=== PATIENT | female | born 1940 | race Hispanic/Latino ===

== ENCOUNTER 2020-07-05 19:43 | Inpatient (IN) | payer OTHER ==
--- OUTSIDE RECORDS SUMMARY | 2020-07-05 19:45 | XMS REPORT | Clinical Summary ---
:1940 Author Organization [facility] Address [address] [place] [address] Care Team Providers Name Role Phone Unavailable Primary Care Provider Unavailable Allergies Not on File Medications Not on file Active Problems Not on file Encounters Date Type Specialty Care Team Description 03/01/2020 Lab Lab Bhavya Greer MD 03/01/2020 Travel after 07/05/2019 Social History Tobacco Use Types Packs/Day Years Used Date Never Assessed Sex Assigned at Date Recorded Not on file Last Filed Vital Signs Not on file Plan of Treatment Health Maintenance Due Date Last Done Comments COVID-19 VACCINE (#1) 1958 SHINGLES VACCINES (#1) 1992 65+ PNEUMOCOCCAL VACCINE (1 of 1 - PPSV23) 2007 INFLUENZA VACCINE 01/29/2020 Procedures Procedure Name Priority Date/Time Associated Diagnosis Comme nts SURGICAL PATHOLOGY Routine 03/01/2020 6:26 PM Re sults for this REQUEST CDT procedure are i n the results section. after 07/05/2019 Results Surgical pathology request (03/01/2020 6:26 PM CDT) [facility] DEPARTMENT OF PATHOLOGY AND GENOMIC MEDICINE Surgical pathology See link below [facility] DEPARTMENT OF report for PDF Lab PATHOLOGY AND Report GENOMIC MEDICINE Result status This is Final [facility] DEPARTMENT OF Report for PATHOLOGY AND [id number] GENOMIC MEDICINE Specimen Performing Organization Address City/State/ZIP Code Phon e Number [facility] DEPARTMENT OF PATHOLOGY AND [address] [place], [place] [address] GENOMIC MEDICINE after 07/05/2019 Insurance Payer Benefit Plan / Subscriber ID Effective Dates Phone Addre ss Type Group MEDICAID MEDICAID [id number] 2016-Present Med icaid [facility] MEDICARE [facility] DUAL COMPLETE [id number] 2019-Present O MCR Advance Directives For more information, please contact: [phone] Type Date 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
--- OUTSIDE RECORDS SUMMARY | 2020-07-05 19:46 | XMS REPORT ---
:1940 Author Organization [facility] Address 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 Problem Osteoarthritis M19.90 Active 129091516 Problem Screening mammogram, Z12.31 Active 171340450 encounter for Problem Hyperlipidemia, E78.5 Active 93648173 unspecified hyperlipidemia type Problem Diabetic E13.42 Active 64670437 polyneuropathy associated with other specified diabetes mellitus Problem Stress incontinence of N39.3 Active 44664783 urine Problem Other chronic pain G89.29 Active 73567898 Problem Right upper quadrant R10.11 Active 119425465 abdominal pain Problem Morbid obesity E66.01 Active 899244705 Problem Respiratory symptoms R09.89 Active 926686354 Problem Long-term insulin use Z79.4 Active 287642415 Problem Body mass index (BMI) Z68.42 Active 002665739 45.0-49.9, adult Problem Uncontrolled type 2 E11.65 Active 297412355 diabetes mellitus with hyperglycemia Problem Pain in left knee M25.562 Active 32469358150190 2 Problem Peripheral edema R60.9 Active 876176342 Problem Pain in right knee M25.561 Active 81924729 Problem Dorsalgia, unspecified M54.9 Active 561819631 Problem Obstructive sleep G47.33 Active 11122293 apnea Problem Neck pain M54.2 Active 80571326 Problem Pure E78.00 Active 726948825 hypercholesterolemia Problem Fatty liver K76.0 Active 982804315 Problem Right leg pain M79.604 Active 567556911 Problem Right hip pain M25.551 Active 366431840976059 Problem Frequent falls R29.6 Active 385600120 Problem Pain of upper abdomen R10.10 Active 54360794 ALLERGIES Allergen (clinical drug Drug/Non Drug Allergy Reaction Allergy Type Onset Date Status ingredient) documented on EMR Carlos Inhibitor Unknown Drug Allergy Active lisinopril Lisinopril([facility] Unknown Drug Allergy Active Code:[address]-10) ENCOUNTERS from 1940 to 2020-04-11 Encounter Location Date Provider Diagnosis [facility] [address] [facility] [address] Mar, 2020 [facility] [place] [address] IMMUNIZATIONS No Information SOCIAL HISTORY Tobacco Use: Social History Observation Description Date Details (start date - stop date) Never Smoker Sex Assigned At : Social History Observation Description Sex Assigned At Unknown PHQ9 Question Answer Notes Little interest or pleasure in doing things More than half t he days Feeling down, depressed, or hopeless More than half the days Trouble falling or staying asleep or sleeping too much Not a t all Feeling tired or having little energy Nearly every day Poor appetite or overeating Not at all Feeling bad about yourself, or that you are a failure, Nearl y every day or have let yourself or your family down Trouble concentrating on things, such as reading the Not at all newspaper or watching television Moving or speaking so slowly that other people could Not at all have noticed; or the opposite, being so fidgety or restless that you have been moving around a lot more than usual Total Score 10 Interpretation Moderate Depression Thoughts that you would be better off or of Not at all hurting yourself in some way Alcohol Screen Question Answer Notes Did you have a drink containing alcohol in the past year? No Points 0 Interpretation Negative Tobacco Use/Smoking Question Answer Notes Are you a never smoker REASON FOR REFERRAL No Information VITAL SIGNS No information MEDICATIONS Medication SIG (Take, Route, Start Date End Date Status Frequency, Duration) Pioglitazone HCl 30 MG 1 tablet Orally Once a Feb, Active day for 90 days Tramadol HCl 50 MG 1 tablet as needed for Active pain Orally Twice daily Albuterol Sulfate HFA 108 2 puffs as needed Active (90 Base) MCG/ACT Inhalation every 4-6 hrs for 30 days BD Pen Needle Kathrine U/F USE DIRECTED for 90 Active 32G X 4 MM Pioglitazone HCl 30 mg 1 tablet Orally Once Active daily for 90 days Tresiba FlexTouch 200 45 units Subcutaneous Active UNIT/ML Once daily for 90 days Escitalopram Oxalate 20 1 tablet Orally Once a Active MG day for 90 days Omeprazole 40 MG 1 capsule Orally Once a Feb, Active day BD Pen Needle Kathrine U/F 0 USE EVERY DAY for 90 Active Losartan Potassium 100 1 tablet Orally Once a Active day for 90 days Victoza 18 MG/3ML as directed Subcutaneous 4 Nov, 2020 Active 1.8 mg once daily for 90 days Magnesium Oxide 400 1 tablet as needed Ac tive Orally Once a day for 90 Lexapro 10 1 TAB(S) ONCE A DAY for Not- Taking 90 Metoprolol Succinate ER 1 tablet Orally Once a Feb, Active 25 MG day for high blood pressure for 90 days Creon 10 33.2-10-37.5 MU as directed Orally Active Victoza 18 MG/3ML 1.2 units Subcutaneous Not-Taking daily Gabapentin 300 1 capsule Orally three Act rodney times a day for 90 days PROCEDURES No Information RESULTS No Results REASON FOR VISIT surgical clearance concern MEDICAL (GENERAL) HISTORY Type Description Date Medical History Diabetic polyneuropathy associated with other specified diabetes mellitus Medical History Diabetes type 2, uncontrolled Medical History Hyperlipidemia Medical History Depression with anxiety Medical History Benign hypertension Medical History Fatty liver Medical History Osteoarthritis Medical History Obstructive sleep apnea Medical History DJD (degenerative joint disease) of lumb ar spine Surgical History 1979 Surgical History gall bladder 1987 Goals Section No Information Health Concerns No Information MEDICAL EQUIPMENT No Information MENTAL STATUS No Information FUNCTIONAL STATUS No Information ASSESSMENTS No Information PLAN OF TREATMENT Medication Medication Name Sig Start Date Stop Date Escitalopram Oxalate 20 MG 1 tablet Orally Once a day for 90 days Tresiba FlexTouch 200 UNIT/ML 45 units Subcutaneous Once daily for 90 days Victoza 18 MG/3ML as directed Subcutaneous 1.8 4 Nov, 2020 mg once daily for 90 days Pioglitazone HCl 30 mg 1 tablet Orally Once daily for 90 days Losartan Potassium 100 1 tablet Orally Once a day for 90 days Albuterol Sulfate HFA 108 (90 2 puffs as needed Inhalation Base) MCG/ACT every 4-6 hrs for 30 days Metoprolol Succinate ER 25 MG 1 tablet Orally Once a day for Feb, high blood pressure for 90 days Next Appt Details Provider Name:Imelda Tello, 2020-05-02 0 10:00:00 AM, [address], [address], [place], [address], Provider Name:Imelda Tello, 2020-05-02 0 10:20:00 AM, [address], [address], [place], [address], Insurance Providers Payer Name Payer Address Payer Insured Patient Coverage Cover age Phone Name Relationship to Start Date End Date Insured MEDICAID [address] [phone] Catherine Vidal [facility] [address] [address] MEDICARE Attn Part B [id number] Catherine Vidal [facility] Claims [phone] [id number] [facility] Dual [address] [address] [phone] Catherine Vidal Complete [facility] [address] [id number]
--- OUTSIDE RECORDS SUMMARY | 2020-07-05 19:46 | XMS REPORT ---
:1940 Author Organization [facility] Address [address] [facility] [facility] [address] [place] [address] Care Team Providers Name Role Phone Caldwell Unavailable [phone] PROBLEMS Type Condition ICD9-CM [id number] Onset Condition SNOMED Code Notes Code Code Dates Status Problem Depression with F41.8 Active 635756892 anxiety Problem Obstructive sleep G47.33 Active 75967789 apnea Problem Pure E78.00 Active 524565493 hypercholesterolemia Problem Body mass index (BMI) Z68.43 Active 523033983 50-59.9 , adult Problem Fatty (change of) K76.0 Active 043623511 liver, not elsewhere classified Problem Diabetic E13.42 Active 63823757 polyneuropathy associated with other specified diabetes mellitus Problem Type 2 diabetes E11.42 Active 40591681 mellitus with diabetic polyneuropathy, without long-term current use of insulin Problem Screening mammogram, Z12.31 Active 676115574 encounter for Problem Osteoarthritis M19.90 Active 070845945 Problem Right hip pain M25.551 Active 614055636023202 Problem 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 86475171 joint disease) of lumbar spine Problem Essential (primary) I10 Active 03108978 hypertension Problem Fatty liver K76.0 Active 723836604 Problem Long-term insulin use Z79.4 Active 430675217 Problem Body mass index (BMI) Z68.42 Active 148946454 45.0-49.9, adult Problem Respiratory symptoms R09.89 Active 046424979 Problem Uncontrolled type 2 E11.65 Active 872071015 diabetes mellitus with hyperglycemia Problem Morbid obesity E66.01 Active 568433018 Problem Right upper quadrant R10.11 Active 434112202 abdominal pain Problem Pain in right knee M25.561 Active 05688987 Problem Right leg pain M79.604 Active 726799261 Problem Pain in left knee M25.562 Active 98692440761811 2 Problem Peripheral edema R60.9 Active 681129597 Problem Pain of upper abdomen R10.10 Active 44072039 Problem Hypomagnesemia E83.42 Active 183231298 Problem Stress incontinence of N39.3 Active 21835384 urine Problem Allergic rhinitis J30.9 Active 54101765 Problem Other chronic pain G89.29 Active 57974501 Problem Hyperlipidemia, E78.5 Active 73598889 unspecified hyperlipidemia type Problem Frequent falls R29.6 Active 067681342 Problem Neck pain M54.2 Active 97454872 Problem Dorsalgia, unspecified M54.9 Active 551331561 Problem Incontinence in female N39.3 Active 25900024 ALLERGIES Allergen (clinical drug Drug/Non Drug Allergy Reaction Allergy Type Onset Date Status ingredient) documented on EMR Carlos Inhibitor Unknown Drug Allergy Active lisinopril Lisinopril([facility] Unknown Drug Allergy Active Code:[address]-65) ENCOUNTERS from 1940 to 2020-06-18 Encounter Location Date Provider Diagnosis [facility] [place] [address] [facility] [place], Salazar Caldwell Morbid ob esity E66.01 ; [facility] [address] [place], hyperchole sterolemia E78.00 [place] [address] ; Stress incon tinence of urine N39.3 ; U ncontrolled type 2 diabetes mellitus with hyperglyce dwayne E11.65 ; Hypomagnesemia E83.42 ; Incontinence in female N39.3 ; Allergic rhin itis J30.9 and Snoring R06 .83 IMMUNIZATIONS No Information SOCIAL HISTORY Tobacco Use: [...] REASON FOR REFERRAL No Information VITAL SIGNS Height 61 in May, Weight 268.4 lbs May, Temperature 97.6 degrees Fahrenheit May, BMI 50.71 kg/m2 May, Oximetry 95 % May, Respiratory Rate 18 /min May, Blood pressure systolic 136 mm Hg May, Blood pressure diastolic 80 mm Hg May, MEDICATIONS Medication SIG (Take, Route, Notes Start Date End Date Status Frequency, Duration) Tresiba FlexTouch 200 45 units Subcutaneous Active UNIT/ML Once daily for 90 days BD Pen Needle Kathrine U/F USE EVERY DAY for 90 Active 0 BD Pen Needle Kathrine U/F USE DIRECTED for Active 32G X 4 MM 90 Victoza 18 MG/3ML as directed Nov, Activ e Subcutaneous 1.8 mg once daily for 90 days Pioglitazone HCl 30 MG 1 tablet Orally Once Feb, Active a day for 90 days Albuterol Sulfate HFA 2 puffs as needed Active 108 (90 Base) MCG/ACT Inhalation every 4-6 hrs for 30 days Gabapentin 300 MG TAKE 1 CAPSULE BY Active MOUTH THREE TIMES DAILY for 30 Tramadol HCl 50 MG 1 tablet as needed Active for pain Orally Twice daily Fish Oil Active Lexapro 10 1 TAB(S) ONCE A DAY Not-T aking for 90 Omeprazole 40 MG 1 capsule Orally Once Feb, Active a day Creon 10 33.2-10-37.5 as directed Orally Not-Taking MU Victoza 18 MG/3ML 1.2 units Not-Paulino ing Subcutaneous daily Magnesium Oxide 400 1 tablet as needed Not-Taking Orally Once a day for 90 Metoprolol Succinate 1 tablet Orally Once Feb, Active ER 25 MG a day for high blood pressure for 90 days Pioglitazone HCl 30 mg 1 tablet Orally Once Active daily for 90 days Gabapentin 300 1 capsule Orally Acti ve three times a day for 90 days Losartan Potassium 100 1 tablet Orally Once Active a day for 90 days Escitalopram Oxalate 1 tablet Orally Once Active 20 MG a day for 90 days PROCEDURES No Information RESULTS No Results REASON FOR VISIT Est Care Prev Millender (both pt and daughter screened) ([phone]) MEDICAL (GENERAL) HISTORY Type Description Date Medical [...] No Information FUNCTIONAL STATUS No Information ASSESSMENTS Encounter Date Diagnosis Assessment Treatment Notes Treatment Notes Clinical Notes May, Morbid obesity (ICD-10 - discussed weight E66.01) loss, diet and regular exercise. May, Pure hypercholesterolemia (ICD-10 - E78.00) May, Stress incontinence of 80 F hx morbid urine (ICD-10 - N39.3) obesty, IDDMII, HTN, 8 vaginal presents with stress urinary incontinence for several years. May, Uncontrolled type 2 diabetes mellitus with hyperglycemia (ICD-10 - E11.65) May, Hypomagnesemia (ICD-10 - E83.42) May, Incontinence in female (ICD-10 - N39.3) May, Allergic rhinitis (ICD-10 BL distended na leena - J30.9) turbinates vs polyp. daily flonase instead of PRN, if not improving will consult ENT May, Snoring (ICD-10 - R06.83) 80 F hx morbid obesity, IDDMII, depression, pancreatic insufficiency presents with snoring, daytime somnolence (after meal), neck 16 inches, malampati class 4. PLAN OF TREATMENT Treatment Notes Assessment Notes Clinical Notes Morbid obesity discussed weight loss, diet and regular exercise. Stress incontinence of urine 80 F hx morbid obesty, IDDMII, HTN, 8 vaginal presents with stress urinary incontinence for several years. Allergic rhinitis BL distended nasal turbinates vs polyp.daily flonase instead of PRN, if not improving will consult ENT Snoring 80 F hx morbid obesity, IDDMII, depression, pancreatic insufficiency presents with snoring, daytime somnolenc e (after meal), neck 16 inches, malampati class 4. Future Test Test Name Order Date Urinalysis, Routine 20200613 Urine Culture, Routine 20200613 Microalbumin, Random Urine 20200613 CBC With Differential/Platelet 20200613 Comp. Metabolic Panel (14) (CMP) 20200613 Hemoglobin A1c 20200613 Lipid Panel 20200613 Magnesium, Serum 20200613 Next Appt Details Provider Name:Salazar Javi, 2020-07-07 09:45 :00 AM, [address], [address], [place], [address], Provider Name:Salazar Caldwell, 2020-07-14 02:40 :00 PM, [address], [address], [place], [address], Insurance Providers Payer Name Payer Payer Insured Patient Coverage Coverage End Address Phone Name Relationship to Start Date Chase e Insured [facility] Dual [address] [address] [phone] Benita Vidal self Complete [address] [facility] [id number]
--- OUTSIDE RECORDS SUMMARY | 2020-07-05 19:46 | XMS REPORT | Continuity of Care Document ---
:1940 Author Organization [facility] t Address [address] [place] [address] Care Team Providers Name Role Phone Percy NOLAN Attending Clinician Payers Payer Name Policy Type Policy Effective Date Expiration Date Sour ce Number MEDICAIDMEDICAIDx [id number] 2016 [place] [id number] 2016- 00:00:[address] PresentMedicaid [facility] MEDICAREUHC [id number] 2019 [place] DUAL COMPLETE 00:00:00 [facility] PQEsvusg24476/07/01 020-PresentHMO Problems This patient has no known problems. Allergies, Adverse Reactions, Alerts Allergy Allergy Status Severity Reaction(s) Onset Inactive Treating Comm ents Source Name Type Date Date Clinician Carlos Adverse Active Info Not [facility] Inhibito Reaction Available [facility] Lisinopr Adverse Active Info Not [facility] Reaction [facility] Social History Social Habit Start Date Stop Date Quantity Comments Source Sex Assigned At [facility] Medications Ordered Filled Start Stop Current Ordering Indication Dosage Frequency Signature Comments Components Source Medication Medication Date Date Medication? Clinician (SIG) Name Name Metoprolol Metoprolol 2019-0 Yes Imelda [address] [facility] Succinate Succinate 9-04 Millender [facility] Metoprolol Metoprolol 2020-0 Yes Imelda [address] [facility] Succinate Succinate 5-26 [facility]ender [facility] Pioglitazon Pioglitazon 2019-0 Yes Imelda [address] [facility] HCl e HCl 9-25 [facility] Omeprazole Omeprazole 2017-0 Yes Imelda [address] [facility] 9-08 [facility]ender [facility] Tresiba Tresiba Yes Imelda [address] [facility] FlexTouch FlexTouch [facility]ender [facility] Magnesium Magnesium Yes Imelda [address] [facility] Oxide Oxide Millender as needed [facility] Tramadol Tramadol Yes Imelda [address] HCl HCl Millender as needed [facility] BD Pen BD Pen Yes Imelda USE EVERY [facility] Needle Kathrine Needle Kathrine Millender DAY [facility] Gabapentin Gabapentin Yes Imelda [address] [facility]ender [facility] Escitalopra Escitalopra Yes Imelda [address] [facility] m Oxalate m Oxalate Millender [facility] Albuterol Albuterol Yes Imelda [address] [facility] Sulfate HFA Sulfate HFA Millender needed [facility] Creon 10 Creon 10 Yes Imelda as [facility] Millender directed [facility] Losartan Losartan Yes Imelda [address] [facility] Potassium Potassium [facility] Lexapro Lexapro Yes Imelda 1 TAB(S) [facility] Millender ONCE A DAY [facility] Victoza Victoza Yes Imelda 1.[address] [facility] Millender [facility]ics Victoza Victoza 2020- No Imelda as [facility] 06-04 Millender directed [facility] Procedures Procedure Date / Time Performed Performing Clinician [facility] SURGICAL PATHOLOGY 2020-03-01 18:26:00 Bhavya Greer REQUEST Plan of Care Planned Activity Planned Date Details Comments Source Future Scheduled 2020-01-29 INFLUENZA VACCINE [place] [facility] 00:00:00 [code = INFLUENZA VACCINE] Future Scheduled 2007 65+ PNEUMOCOCCAL Colin [facility] Test 00:00:00 VACCINE (1 of 1 - PPSV23) [code = 65+ PNEUMOCOCCAL VACCINE (1 of 1 - PPSV23)] Future Scheduled 1992 SHINGLES VACCINES (#1) H feroz [facility] Test 00:00:00 [code = SHINGLES VACCINES (#1)] Future Scheduled 1958 COVID-19 VACCINE (#1) Ho merrick [facility] Test 00:00:00 [code = COVID-19 VACCINE (#1)] Encounters Start End Encounter Admission Attending Care Care Encounter Source Date/Time Date/Time Type Type Clinicians Facility Department ID 2020-06-21 2020-06-21 Outpatient [facility] [id number] [facility] 2020-06-13 2020-06-13 Outpatient [facility] [id number] [facility] 2020-04-10 2020-04-10 Outpatient [facility] [id number] [facility] 2020-03-13 2020-03-13 Outpatient [facility] [id number] [facility] 2020-03-01 2020-03-01 Outpatient Dameon Lugo [id number] [facility] 16:20:00 16:20:00 [facility] 2020-03-01 2020-03-01 Outpatient [facility] [id number] [place] 00:00:00 00:00:00 BHAVYA [address] 2020-02-22 2020-02-22 Outpatient Dameon Lugo [id number] 16:30:00 16:30:00 [facility] Clin[facility] 2020-02-18 2020-02-18 Outpatient Dameon Xiaot [id number] 11:13:00 11:13:00 [facility] Medicine Outpat[facility] ent Clinics 2019-12-07 2019-12-07 [facility] [id number] 09:54:00 09:54:00 [facility] 2019-11-23 2019-11-23 [facility] [id number] [facility] 08:40:00 08:40:00 [facility] 2019-09-13 2019-09-13 [facility] [id number] [facility] 14:09:00 14:09:00 [facility] 2019-08-24 2019-08-24 [facility] [id number] 08:15:00 08:15:00 [facility] 2019-07-26 2019-07-26 [facility] [id number] 16[facility]40:00 16:40:00 [facility] 2019-07-06 2019-07-06 [facility] [id number] 16:20:00 16:20:00 [facility] Out[facility] Clin[facility] 2019-05-24 2019-05-24 [facility] [id number] 09[facility]00:00 09:00:00 [facility] 2019-05-19 2019-05-19 [facility] [id number] [facility] 10[facility]14:00 10:14:00 [facility] 2019-05-14 2019-05-14 [facility] [id number] 15:28:00 15:28:00 [facility] Clin[facility] 2019-02-26 2019-02-26 [facility] [id number] 16:03:00 16:03:00 [facility] 2019-02-23 2019-02-23 [facility] [id number] 09:30:00 09:30:00 [facility] 2018-12-09 2018-12-09 [facility] [id number] 14:30:00 14:30:00 [facility] 2018-07-27 2018-07-27 [facility] [id number] 09:15:00 09:15:00 [facility] Results Test Description Test Time Test Comments Results Result Comments Source Surgical pathology request 2020-03-03 18:46:19 Test Item Value Reference Range Interpretation Comme [facility] Case number (test code = [id number]) [id number] Surgical pathology report (test code = See link below for PDF Lab R eport 8787) Result status (test code = [id number]) This is Final Report for [id number] Cristi Burdick
--- OUTSIDE RECORDS SUMMARY | 2020-07-05 19:46 | XMS REPORT ---
:1940 Author Organization [facility] Address [address] [place], [address] [place] [address] Care Team Providers Name Role Phone Vaughan Unavailable [phone] PROBLEMS Type Condition ICD9-CM QZD10-EQ Onset Condition SNOMED Code Notes Code Code Dates Status Problem Depression with F41.8 Active 310284642 anxiety Problem Obstructive sleep G47.33 Active 87090282 apnea Problem Pure E78.00 Active 834604183 hypercholesterolemia Problem Body mass index (BMI) Z68.43 Active 744994814 50-59.9 , adult Problem Fatty (change of) K76.0 Active 138555952 liver, not elsewhere classified Problem Diabetic E13.42 Active 50563878 polyneuropathy associated with other specified diabetes mellitus Problem 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89 Active 209438669 Problem Uncontrolled type 2 E11.65 Active 868314052 diabetes mellitus with hyperglycemia Problem Morbid obesity E66.01 Active 986459595 Problem Right upper quadrant R10.11 Active 334462417 abdominal pain Problem Pain in right knee M25.561 Active 93555948 Problem Right leg pain M79.604 Active 779519120 Problem Pain in left knee M25.562 Active 09903840821558 2 Problem Peripheral edema R60.9 Active 393989211 Problem Pain of upper abdomen R10.10 Active 70055476 Problem Hypomagnesemia E83.42 Active 246613931 Problem Stress incontinence of N39.3 Active 82616692 urine Problem Allergic rhinitis J30.9 Active 43413075 Problem Other chronic pain G89.29 Active 98988130 Problem Hyperlipidemia, E78.5 Active 06034634 unspecified hyperlipidemia type Problem Frequent falls R29.6 Active 884689710 Problem Neck pain M54.2 Active 21615956 Problem Dorsalgia, unspecified M54.9 Active 767453793 Problem Incontinence in female N39.3 Active 13556684 ALLERGIES Allergen (clinical drug Drug/Non Drug Allergy Reaction Allergy Type Onset Date Status ingredient) documented on EMR Carlos Inhibitor Unknown Drug Allergy Active lisinopril Lisinopril([facility] Unknown Drug Allergy Active Code:[address]-32) ENCOUNTERS from 1940 to 2020-07-03 Encounter Location Date Provider Diagnosis [address] May, 2020 [place] [address] IMMUNIZATIONS No Information SOCIAL HISTORY Tobacco Use: [...] No information MEDICATIONS Medication SIG (Take, Route, Notes Start Date End Date Status Frequency, Duration) Tresiba FlexTouch 200 45 units Subcutaneous Active UNIT/ML Once daily for 90 days BD Pen Needle Kathrine U/F USE EVERY DAY for 90 Active 0 BD Pen Needle Kathrine U/F USE DIRECTED for Active 32G X 4 MM 90 Creon 10 33.2-10-37.5 as directed Orally Not-Taking MU Pioglitazone HCl 30 MG 1 tablet Orally Once Feb, Active a day for 90 days Victoza 18 MG/3ML 1.2 units Not-Paulino ing Subcutaneous daily Gabapentin 300 MG TAKE 1 CAPSULE BY Active MOUTH THREE TIMES DAILY for 30 Fish Oil Active Albuterol Sulfate HFA 2 puffs as needed Active 108 (90 Base) MCG/ACT Inhalation every 4-6 hrs for 30 days Tramadol HCl 50 MG 1 tablet as needed Active for pain Orally Twice daily Omeprazole 40 MG 1 capsule Orally Once Feb, Active a day Gabapentin 300 1 capsule Orally Acti ve three times a day for 30 days Losartan Potassium 100 1 tablet Orally Once Active a day for 90 days Magnesium Oxide 400 1 tablet as needed Not-Taking Orally Once a day for 90 Victoza 18 MG/3ML as directed Nov, Activ e Subcutaneous 1.8 mg once daily for 90 days Pioglitazone HCl 30 mg 1 tablet Orally Once Active daily for 90 days Lexapro 10 1 TAB(S) ONCE A DAY Not-T aking for 90 Metoprolol Succinate 1 tablet Orally Once Feb, Active ER 25 MG a day for high blood pressure for 90 days Escitalopram Oxalate 1 tablet Orally Once Active 20 MG a day for 90 days PROCEDURES No Information RESULTS No Results REASON FOR VISIT Pending referral MEDICAL (GENERAL) HISTORY Type Description Date Medical History Diabetic polyneuropathy associated with other specified diabetes mellitus Medical History Diabetes type 2, uncontrolled Medical History Hyperlipidemia Medical History Depression with anxiety Medical History Benign hypertension Medical History Fatty liver Medical History Osteoarthritis Medical History Obstructive sleep apnea Medical History DJD (degenerative joint disease) of [facility] spine Surgical History 1979 Surgical History gall bladder 1988 Goals Section No Information Health Concerns No Information MEDICAL EQUIPMENT No Information MENTAL STATUS No Information FUNCTIONAL STATUS No Information ASSESSMENTS No Information PLAN OF TREATMENT Medication Medication Name Sig Start Date Stop Date Gabapentin 300 1 capsule Orally three times a day for 30 days Next Appt Details Provider Name:Raleigh Vaughan, 2020-07-24 02:10:00 PM, [address] [place], [address], [place], [address], Insurance Providers Payer Name Payer Payer Insured Patient Coverage Coverage End Address Phone Name Relationship to Start Date Chase e Insured [facility] [address] [address] [phone] Benita Vidal self [facility] [address] [facility] [address]
[2020-07-05] MEDS ORDERED: AZITHROMYCIN 500 MG INJ IVPB ONE (20:42)
[2020-07-05] MEDS ORDERED: ASPIRIN 81 MG CHEWABLE TABLET ONE (20:42)
[2020-07-05] MEDS ORDERED: NA CHLORIDE 0.9% 250 ML ONE (20:42)
[2020-07-05] MEDS ORDERED: dexAMETHasone 10 MG/ML VIAL ONE (20:42)
[2020-07-05] MEDS ORDERED: FAMOTIDINE 20 MG/2 ML VIAL IV ONE (20:42)
[2020-07-05] MEDS ORDERED: ALBUTEROL INHALER 60 PUFF/8 GM IH ONE (20:43)
[2020-07-05] MEDS ORDERED: CEFTRIAXONE/SWI 1gm 1 GM/10 ML SYR ONE (20:43)
--- NOTE | 2020-07-05 21:04 | RAD REPORT ---
EXAM DESCRIPTION: RAD - Chest Single View - 07/05/2020 8:58 pm CLINICAL HISTORY: Cough;Dyspnea Chest pain. COMPARISON: Chest Pa And Lat (2 Views) dated 03/02/2020; Chest Single View dated 03/13/2017; CHEST PA A ND LAT 2 VIEW dated 02/21/2015; CHEST SINGLE VIEW dated 01/28/2015 FINDINGS: Portable technique limits examination quality. Significant bilateral pulmonary opacities are present likely representing pneumonia. The heart is upp er limit normal in size. No displaced fractures.
[2020-07-05 21:33] LABS: Protime INR 1.01
[2020-07-05 21:35] LABS: Absolute Lymphocytes (CBC) 0.6 K/uL (0.7-4.9); Basophils % 0.2 % (0-1.3); Hematocrit 36.1 % (36.0-45.0); Lymphocytes % 15.9 % (15.3-44.8); MPV 9.8 fL (7.6-11.3); RBC Red Blood Cell Count 4.51 M/uL (3.86-4.86)
[2020-07-05 21:40] LABS: SARS-COV-2 RT PCR POSITIVE (NEGATIVE)
--- NOTE | 2020-07-05 21:50 | ER ---
Nurse's Notes [facility] Name: Benita Vidal Age: 80 yrs Sex: Female : 1940 Arrival Date: 07/05/2020 Time: 19:44 Bed 15 Private MD: Diagnosis: Hypoxemia;SARS-associated coronavirus as the cause of diseases classified elsewhere-covid 19;Obesity, unspecified;Type 1 diabetes mellitus;Other viral pneumonia-bilateral, multifocal Presentation: 07/05 20:02 Chief complaint: Patient states: Diagnosed 06/28 with covid. Has SOB, low O2 (84% at ll1 home). Fever today. Coronavirus screen: Client denies travel out of the [place] in the last 14 days. cough unrelated to allergies, difficulty breathing, fatigue, fever, shortness of breath, Client presents with at least one sign or symptom that may indicate coronavirus-19. Standard/surgical mask placed on the client. Client reports previous positive COVID test result. Ebola Screen: Patient denies travel to an Ebola-affected area in the 21 days before illness onset. Initial Sepsis Screen: Does the patient meet any 2 criteria? No. Patient's initial sepsis screen is negative. Does the patient have a suspected source of infection? Yes: Productive cough/pneumonia. Risk Assessment: Do you want to hurt yourself or someone else? Patient reports no desire to harm self or others. Onset of symptoms was June 28, 2021. 20:02 Method Of Arrival: Ambulatory ll1 20:02 Acuity: AMEENA 2 ll1 Historical: - Allergies: 20:02 No Known Allergies; ll1 - PMHx: 20:02 Depression; Diabetes - IDDM; PERIPHERAL NEUROPATHY; ll1 - PSHx: 20:02 Cholecystectomy; ; ll1 - Immunization history:: Flu vaccine is up to date. - Social history:: Smoking status: Patient denies any tobacco usage or history of. - Family history:: not pertinent. Screenin:15 Abuse screen: Denies threats or abuse. Denies injuries from another. Nutritional rr5 screening: No deficits noted. Tuberculosis screening: No symptoms or risk factors identified. Fall Risk IV access (20 points). Total Coleman Fall Scale indicates No Risk (0-24 pts). Assessment: 20:30 General: Appears in no apparent distress. comfortable, Behavior is calm, cooperative, rr5 appropriate for age. Pain: Denies pain. Neuro: Level of Consciousness is awake, alert, obeys commands, Oriented to person, place, time, situation. Cardiovascular: Capillary refill < 3 seconds Patient's skin is warm and dry. Respiratory: Airway is patent Respiratory effort is even, unlabored, Respiratory pattern is regular, symmetrical, Parent/caregiver reports the patient having shortness of breath cough that is. GI: No signs and/or symptoms were reported involving the gastrointestinal system. : No signs and/or symptoms were reported regarding the genitourinary system. EENT: No signs and/or symptoms were reported regarding the EENT system. Derm: Skin is intact, is healthy with good turgor, Skin temperature is warm. Musculoskeletal: Capillary refill < 3 seconds. 21:30 Reassessment: Patient appears in no apparent distress at this time. Patient is alert, rr5 oriented x 3, equal unlabored respirations, skin warm/dry/pink. 22:00 Reassessment: Patient appears in no apparent distress at this time. Patient is alert, rr5 oriented x 3, equal unlabored respirations, skin warm/dry/pink. send to CT scan assisted by CT staff. 22:05 Reassessment: hospitalist at bedside, spoke to family member. rr5 22:30 Reassessment: Patient appears in no apparent distress at this time. Patient is alert, rr5 oriented x 3, equal unlabored respirations, skin warm/dry/pink. for admission agreed for the plan of care. Vital Signs: 20:02 BP 129 / 62; Pulse 90; Resp 28; Temp 98.0; Pulse Ox 85% on R/A; Pain 0/10; ll1 20:35 BP 126 / 69; Pulse 96; Resp 24; Pulse Ox 90% on 3 lpm NC; rr5 21:55 BP 110 / 70; Pulse 85; Resp 26; Pulse Ox 94% on 3 lpm NC; rr5 22:30 BP 136 / 85; Pulse 80; Resp 24; Temp 98; Pulse Ox 96% on 3 lpm NC; rr5 ED Course: 19:44 Patient arrived in ED. cl3 19:56 Tonio Cornell MD is Attending Physician. diana 20:02 Arm band placed on. ll1 20:04 Triage completed. ll1 20:10 Mata, Roni, RN is Primary Nurse. rr5 20:30 Patient has correct armband on for positive identification. Bed in low position. Call rr5 light in reach. Side rails up X2. 20:30 monitoring manager on. Pulse ox on. NIBP on. rr5 20:42 EKG done, by ED staff, reviewed by Tonio Cornell MD COVID swab sent to lab. Flu and/or jp3 RSV swab sent to lab. 20:59 XRAY Chest (1 view) In Process Unspecified. EDMS 21:05 Initial lab(s) drawn, by me, sent to lab. First set of blood cultures drawn by me. jp3 Inserted saline lock: 20 gauge in right forearm, using aseptic technique. Blood collected. 21:15 Second set of blood cultures drawn by me. jp3 21:47 Hai Rico DO is Hospitalizing Provider. [facility] 22:16 CT Chest For PE Angio In Process Unspecified. EDMS 22:30 No provider procedures requiring assistance completed. Patient admitted, IV remains in rr5 place. intact, No redness/swelling at site. Administered Medications: 20:50 Drug: Aspirin 162 mg Route: PO; rr5 21:50 Follow up: Response: No adverse reaction rr5 20:52 Drug: Albuterol HFA Inhaler 4 puffs Route: Inhalation; rr5 21:50 Follow up: Response: No adverse reaction rr5 20:55 Drug: Pepcid 40 mg Route: IVP; Site: right forearm; rr5 21:50 Follow up: Response: No adverse reaction rr5 20:57 Drug: Decadron - Dexamethasone 10 mg Route: IVP; Site: right forearm; rr5 21:55 Follow up: Response: No adverse reaction rr5 21:00 Drug: Rocephin 1 grams Route: IV; Rate: per protocol; Site: right forearm; rr5 21:30 Follow up: Response: No adverse reaction; IV Status: Completed infusion; IV Intake: [id number] 21:30 Dru mg of (Zithromax 500 mg, NS 0.9% 250 ml) Route: IVPB; Infused Over: 1 hrs; rr5 Site: right forearm; 22:30 Follow up: Response: No adverse reaction; IV Status: Completed infusion; IV Intake: rr5 250ml Intake: 21:30 IV: 10ml; Total: 10ml. rr5 22:30 IV: 250ml; Total: 260ml. rr5 Outcome: 21:49 Decision to Hospitalize by Provider. diana 22:30 Admitted to ER Hold. Please see [facility] for further documentation. rr5 22:30 Condition: stable 22:30 Instructed on the need for admit. 07/06 21:50 Patient left the ED. mw2 Signatures: Dispatcher [employer] EDHI Tonio Cornell MD MD cha [place], MyKena mw2 Dorian Zazueta jp3 Roni Mata, RN RN rr5 Sandy Lynn cl3 Jose Lynn, RN RN ll1
--- NOTE | 2020-07-05 21:50 | EDPHYS ---
Physician Documentation [facility] Name: Benita Vidal Age: 80 yrs Sex: Female : 1940 Arrival Date: 07/05/2020 Time: 19:44 Bed 15 Private MD: ED Physician Tonio Cornell HPI: 07/05 20:25 This 80 yrs old Female presents to ER via Ambulatory with complaints of Low diana Oxygen. 20:25 The patient has shortness of breath at rest, with light activity. Onset: The diana symptoms/episode began/occurred 5 day(s) ago. Duration: The symptoms are continuous, and are steadily getting worse. The patient's shortness of breath is aggravated by coughing, supine position, walking. The patient or guardian reports cough, difficulty breathing, flu symptoms, arthralgias, low-grade fever, myalgias. Modifying factors: The symptoms are alleviated by remaining still. obese, female, morbid obesity, covid positive. Associated signs and symptoms: Pertinent positives: non-productive cough. Severity of symptoms: At their worst the symptoms were mild moderate in the emergency department the symptoms have improved mildly. Associated signs and symptoms: Pertinent positives: fever, nausea, rhinorrhea, sore throat. Historical: - Allergies: 20:02 No Known Allergies; ll1 - PMHx: 20:02 Depression; Diabetes - IDDM; PERIPHERAL NEUROPATHY; ll1 - PSHx: 20:02 Cholecystectomy; ; ll1 - Immunization history:: Flu vaccine is up to date. - Social history:: Smoking status: Patient denies any tobacco usage or history of. - Family history:: not pertinent. ROS: 20:25 Constitutional: Negative for fever, chills, and weight loss, Eyes: Negative for injury, diana pain, redness, and discharge, ENT: Negative for injury, pain, and discharge, Neck: Negative for injury, pain, and swelling, Cardiovascular: Negative for chest pain, palpitations, and edema, Abdomen/GI: Negative for abdominal pain, nausea, vomiting, diarrhea, and constipation, Back: Negative for injury and pain, : Negative for injury, bleeding, discharge, and swelling, MS/Extremity: Negative for injury and deformity, Skin: Negative for injury, rash, and discoloration, Neuro: Negative for headache, weakness, numbness, tingling, and seizure. 20:25 Respiratory: Positive for cough, shortness of breath, at rest. Exam: 20:25 Constitutional: This is a well developed, well nourished patient who is awake, alert, diana and in no acute distress. Head/Face: Normocephalic, atraumatic. Eyes: Pupils equal round and reactive to light, extra-ocular motions intact. Lids and lashes normal. Conjunctiva and sclera are non-icteric and not injected. Cornea within normal limits. Periorbital areas with no swelling, redness, or edema. ENT: Nares patent. No nasal discharge, no septal abnormalities noted. Tympanic membranes are normal and external auditory canals are clear. Oropharynx with no redness, swelling, or masses, exudates, or evidence of obstruction, uvula midline. Mucous membranes moist. Neck: Trachea midline, no thyromegaly or masses palpated, and no cervical lymphadenopathy. Supple, full range of motion without nuchal rigidity, or vertebral point tenderness. No Meningismus. Chest/axilla: Normal chest wall appearance and motion. Nontender with no deformity. No lesions are appreciated. Cardiovascular: Regular rate and rhythm with a normal S1 and S2. No gallops, murmurs, or rubs. Normal PMI, no JVD. No pulse deficits. Abdomen/GI: Soft, non-tender, with normal bowel sounds. No distension or tympany. No guarding or rebound. No evidence of tenderness throughout. Back: No spinal tenderness. No costovertebral tenderness. Full range of motion. Female : Normal external genitalia. Skin: Warm, dry with normal turgor. Normal color with no rashes, no lesions, and no evidence of cellulitis. MS/ Extremity: Pulses equal, no cyanosis. Neurovascular intact. Full, normal range of motion. Neuro: Awake and alert, GCS 15, oriented to person, place, time, and situation. Cranial nerves II-XII grossly intact. Motor strength 5/5 in all extremities. Sensory grossly intact. Cerebellar exam normal. Normal gait. Psych: Awake, alert, with orientation to person, place and time. Behavior, mood, and affect are within normal limits. 20:25 Respiratory: the patient does not display signs of respiratory distress, Respirations: normal, Breath sounds: decreased breath sounds, rhonchi, + upper airway congestion. Respiratory rate: 28 21:54 ECG was reviewed by the Attending Physician. [facility] Vital Signs: 20:02 BP 129 / 62; Pulse 90; Resp 28; Temp 98.0; Pulse Ox 85% on R/A; Pain 0/10; ll1 20:35 BP 126 / 69; Pulse 96; Resp 24; Pulse Ox 90% on 3 lpm NC; rr5 21:55 BP 110 / 70; Pulse 85; Resp 26; Pulse Ox 94% on 3 lpm NC; rr5 22:30 BP 136 / 85; Pulse 80; Resp 24; Temp 98; Pulse Ox 96% on 3 lpm NC; rr5 MDM: 19:56 Patient medically screened. diana 20:29 Differential diagnosis: Anemia asthma, Bronchitis CHF exacerbation, Chronic Obstructive diana Pulmonary Disease bronchitis, flu, URI, pneumonia, pulmonary edema, Pulmonary Embolism reactive airway disease, Sepsis Unstable Angina. Antibiotic administration: Rocephin and Zithromax given. Differential Diagnosis sepsis, flu. The patient's Wells Deep Vein Thrombosis Score was calculated as follows: Total Score: 0-2 Pts- Low Risk. The patient's pulmonary embolism risk score was calculated as follows: Total Score: 0-2 points. This patient was found to be at low risk for a pulmonary embolism by using the Well's assessment criteria. Immunization status: Pneumococcal vaccine: Influenza vaccine: Data reviewed: vital signs, nurses notes, lab test result(s), EKG, radiologic studies, CT scan, plain films. Data interpreted: pvc monitor: rate is 90 beats/min, rhythm is regular, Pulse oximetry: on room air is 85 %. Test interpretation: by ED physician or midlevel provider: ECG, plain radiologic studies. 07/05 20:23 Order name: Basic Metabolic Panel; Complete Time: 21:59 [facility] 07/05 20:23 Order name: CBC with Diff; Complete Time: 21:42 [facility] 07/05 20:23 Order name: LFT's; Complete Time: 21:59 [facility] 07/05 20:23 Order name: Magnesium; Complete Time: 21:59 [facility] 07/05 20:23 Order name: NT PRO-BNP; Complete Time: 21:59 [facility] 07/05 20:23 Order name: PT-INR; Complete Time: 21:42 [facility] 07/05 20:23 Order name: Troponin (emerg Dept Use Only); Complete Time: 21:59 [facility] 07/05 20:23 Order name: Blood Culture Adult (2) [facility] 07/05 20:23 Order name: Ferritin; Complete Time: 21:59 diana 07/05 20:23 Order name: CRP; Complete Time: 21:59 diana 07/05 20:31 Order name: Flu [facility] 07/05 21:41 Order name: COVID-19/FLU A+B; Complete Time: 21:42 EDMS 07/06 01:27 Order name: Urine Dipstick--Ancillary (enter results) mw2 07/05 20:23 Order name: XRAY Chest (1 view); Complete Time: 21:30 diana 07/05 20:35 Order name: CT Chest For PE Angio diana 07/06 05:54 Order name: CBC with Automated Diff EDMS 07/06 06:05 Order name: Basic Metabolic Panel EDMS 07/06 06:05 Order name: C-Reactive Protein EDMS 07/06 06:05 Order name: Magnesium EDMS 07/06 06:05 Order name: Ferritin EDMS 07/06 06:31 Order name: Hemoglobin A1c EDMS 07/06 08:17 Order name: Glucose, Ancillary Testing EDMS 07/06 09:20 Order name: CBC Smear Scan EDMS 07/06 12:36 Order name: Glucose, Ancillary Testing EDMS 07/06 16:58 Order name: Glucose, Ancillary Testing EDMS 07/06 21:47 Order name: Glucose, Ancillary Testing EDMS 07/05 20:23 Order name: EKG; Complete Time: 20:24 diana 07/05 20:23 Order name: Cardiac monitoring; Complete Time: 21:16 diana 07/05 20:23 Order name: EKG - Nurse/Tech; Complete Time: 21:16 diana 07/05 20:23 Order name: IV Saline Lock; Complete Time: 21:16 diana 07/05 20:23 Order name: Labs collected and sent; Complete Time: 21:16 diana 07/05 20:23 Order name: O2 Per Protocol; Complete Time: 21:16 diana 07/05 20:23 Order name: O2 Sat Monitoring; Complete Time: 21:16 diana 07/05 20:23 Order name: Urine Dipstick-Ancillary (obtain specimen); Complete Time: 01:27 [facility] EC:54 Rate is 87 beats/min. Rhythm is regular. QRS [place] is Normal. MS interval is normal. QRS diana interval is normal. QT interval is normal. No Q waves. T waves are Normal. No ST changes noted. Clinical impression: NSR w/ Non-specific ST/T Changes and No evidence of ischemia. Interpreted by me. Reviewed by me. Administered Medications: 20:50 Drug: Aspirin 162 mg Route: PO; rr5 21:50 Follow up: Response: No adverse reaction rr5 20:52 Drug: Albuterol HFA Inhaler 4 puffs Route: Inhalation; rr5 21:50 Follow up: Response: No adverse reaction rr5 20:55 Drug: Pepcid 40 mg Route: IVP; Site: right forearm; rr5 21:50 Follow up: Response: No adverse reaction rr5 20:57 Drug: Decadron - Dexamethasone 10 mg Route: IVP; Site: right forearm; rr5 21:55 Follow up: Response: No adverse reaction rr5 21:00 Drug: Rocephin 1 grams Route: IV; Rate: per protocol; Site: right forearm; rr5 21:30 Follow up: Response: No adverse reaction; IV Status: Completed infusion; IV Intake: [id number] 21:30 Dru mg of (Zithromax 500 mg, NS 0.9% 250 ml) Route: IVPB; Infused Over: 1 hrs; rr5 Site: right forearm; 22:30 Follow up: Response: No adverse reaction; IV Status: Completed infusion; IV Intake: rr5 250ml Disposition: 07/05/20 21:49 Hospitalization ordered by Hai Rico for Inpatient Admission. Preliminary diagnosis are Hypoxemia, SARS-associated coronavirus as the cause of diseases classified elsewhere - covid 19, Obesity, unspecified, Type 1 diabetes mellitus, Other viral pneumonia - bilateral, multifocal. - Bed requested for Telemetry/MedSurg (Inpatient). - Status is Inpatient Admission. mw2 - Condition is Serious. - Problem is new. - Symptoms have improved. Signatures: Dispatcher [employer] EDMS Tonio Cornell MD MD cha Attema, Lee, CORPORATE EXECUTIVE-C CORPORATE EXECUTIVE-Cla1 Esperanza Siddiqi, RUPERTO RN Dave Briseno mw2 Roni Mata RN RN rr5 Jose Lynn RN RN ll1 Corrections: (The following items were deleted from the chart) 20:54 20:32 CORONAVIRUS+MR.LAB.BRZ ordered. EDNC EDMS 23:20 21:49 Hospitalization Ordered by Hai Rico DO for Inpatient Admission. Preliminary cg diagnosis is Hypoxemia; SARS-associated coronavirus as the cause of diseases classified elsewhere - covid 19; Obesity, unspecified; Type 1 diabetes mellitus; Other viral pneumonia - bilateral, multifocal. Bed requested for Telemetry/MedSurg (Inpatient). Status is Inpatient Admission. Condition is Serious. Problem is new. Symptoms have improved. [facility] 07/06 20:23 01 23:20 07/05/2020 21:49 Hospitalization Ordered by Hai Rico DO for Inpatient cg Admission. Preliminary diagnosis is Hypoxemia; SARS-associated coronavirus as the cause of diseases classified elsewhere - covid 19; Obesity, unspecified; Type 1 diabetes mellitus; Other viral pneumonia - bilateral, multifocal. Bed requested for [facility] ER HOLD. Status is Inpatient Admission. Condition is Serious. Problem is new. Symptoms have improved. 07/06 21:50 20:23 07/05/2020 21:49 Hospitalization Ordered by Hai Rico DO for Inpatient mw2 Admission. Preliminary diagnosis is Hypoxemia; SARS-associated coronavirus as the cause of diseases classified elsewhere - covid 19; Obesity, unspecified; Type 1 diabetes mellitus; Other viral pneumonia - bilateral, multifocal. Bed requested for Telemetry/MedSurg (Inpatient). Status is Inpatient Admission. Condition is Serious. Problem is new. Symptoms have improved. cg
[2020-07-05 21:53] LABS: ALT/SGPT 23 U/L (12-78); AST/SGOT 31 U/L (15-37); Albumin 2.6 g/dL (3.4-5.0); Alkaline Phosphatase 74 U/L (45-117); BUN Blood Urea Nitrogen 17 mg/dL (7-18); Bicarbonate 26 mmol/L (21-32); Bilirubin Direct < 0.1 mg/dL (0-0.2); Bilirubin Total 0.3 mg/dL (0.2-1.0); Ferritin 397.2 ng/mL (8-388); Glucose Level 194 mg/dL (74-106); Magnesium 1.9 mg/dL (1.8-2.4); NT PRO-BNP 71 pg/mL (<450); Potassium 3.7 mmol/L (3.5-5.1); Sodium Level 131 mmol/L (136-145); Troponin (Emerg Dept Use Only) < 0.02 ng/mL (0.0-0.045)
--- NOTE | 2020-07-05 23:28 | P.HP ---
Certification for Inpatient Patient admitted to: Inpatient With expected LOS: >2 Midnights Patient will require the following post-hospital care: None Practitioner: I am a practitioner with admitting privileges, knowledge of patient current condition, hospital course, and medical plan of care. Services: Services provided to patient in accordance with Admission requirements found in Title 42 Section 412.3 of the Code of Federal Regulations Patient History Date of Service: 07/05/20 Primary Care Provider: Bea Reason for admission: COVID pneumonia with hypoxia History of Present Illness: 80-year-old female with history of diabetes mellitus type 2, hypertension presents to the emergency department for shortness of breath. Patient tested positive for COVID 06/28/2020 and had been doing well at home until today when she had increased cough, fever and daughter checked oxygen level finding it to be 83% on room air at home. Patient was brought to the emergency department evaluated found to be 85% on room air, labs significant for elevated CRP 93.5 elevated ferritin 397.2 patient requiring nasal cannula oxygen around 3-4 L although she is not significantly tachypneic. ED provider wishes to admit patient for further evaluation and management. Allergies No Known Drug Allergies Allergy (Verified 01/29/15 01:45) Unknown No Known Allergies Allergy (Uncoded 09/18/15 12:39) Unknown Home Medications: Metformin HCl [Glucophage*] 1,000 mg PO BIDWM 08/17/12 Gabapentin 300 mg PO TID 08/18/12 Aspirin [Aspirin EC 81 MG] 81 mg PO DAILY 01/28/15 Escitalopram [Lexapro] 10 mg PO BEDTIME 01/28/15 Esomeprazole Mag Trihydrate [Nexium] 40 mg PO DAILY 01/28/15 Insulin Degludec [Tresiba Flextouch U-200] 60 unit SQ DAILY 03/14/17 Pioglitazone HCl 15 mg PO DAILY 03/14/17 Smz./Tmp. [Bactrim Ds 800 MG/160 MG] 1 tab PO BID #10 tab 03/16/17 - Past Medical/Surgical History Diabetic: Yes -: Diabetes mellitus type 2 -: cyst behind liver -: Hypertension -: cholecystectomy -: C section Psychosocial/ Personal History: Patient is retired and lives with her daughter - Family History Father -: Hypertension, Lung disease, Cancer, Liver disease Mother -: Diabetes - Social History Smoking Status: Never smoker Alcohol use: No CD- Drugs: No Caffeine use: Yes Place of Residence: Home Review of Systems 10-point ROS is otherwise unremarkable General: Fever, Chills, Weakness, Malaise Respiratory: Cough, Shortness of Breath Physical Examination - Physical Exam General: Alert, In no apparent distress HEENT: Atraumatic, PERRLA, Mucous membr. moist/pink Neck: Supple, 2+ carotid pulse no bruit, No LAD Respiratory: Normal air movement, Diminished (Bilaterally) Cardiovascular: Regular rate/rhythm, Normal S1 S2 Capillary refill: <2 Seconds Gastrointestinal: Normal bowel sounds, No tenderness Musculoskeletal: No tenderness Integumentary: No rashes Neurological: Normal speech, Normal strength at 5/5 x4 extr, Normal tone, Normal affect - Studies Laboratory Data (last 24 hrs) 07/05/20 21:05: PT 11.9, INR 1.01 07/05/20 21:05: WBC 3.6 L, Hgb 11.8 L, Hct 36.1, Plt Count 148 L 07/05/20 21:05: Sodium 131 L, Potassium 3.7, BUN 17, Creatinine 0.89, Glucose 194 H, Magnesium 1.9, Total Bilirubin 0.3, AST 31, ALT 23, Alkaline Phosphatase 74 Assessment and Plan - Plan Assessment COVID pneumonia with hypoxia Diabetes mellitus type 2 Plan COVID pneumonia with hypoxia: Trend CRP, ferritin levels. Pulmonology consult in place, respiratory therapy consult in place, daily room air saturations, room air saturations for home O2. Continue with IV steroids, oral supplements. Possible discharge in the next couple of days on home oxygen if she continues to do well. Patient is full code at this time. Diabetes mellitus type 2: A.c. HS Accu-Cheks, sliding scale insulin therapy. A1c with morning labs. Discharge Plan: Home Plan to discharge in: 48 Hours - Advance Directives Does patient have a Living Will: No Does patient have a Durable POA for Healthcare: No - Code Status/Comfort Care Code Status Assessed: Yes (Full code) Critical Care: No Time Spent Managing Pts Care (In Minutes): 55
[2020-07-06] MEDS: METHYLPREDNISOLONE 40 MG INJ IV SCH ×3 (03:20→17:40)
[2020-07-06] MEDS ORDERED: ACETAMINOPHEN 500 MG TAB PO PRN (03:20)
[2020-07-06] MEDS ORDERED: MELATONIN 5 MG TABLET PO PRN (03:20)
[2020-07-06] MEDS: HYDROCODONE/CHLORPHEN 5 ML/OSYR PO PRN ×3 (03:44→17:42)
[2020-07-06] MEDS ORDERED: METHYLPREDNISOLONE 40 MG INJ ONE ×3 (03:55→18:02)
[2020-07-06] MEDS ORDERED: HYDROCODONE/CHLORPHEN 5 ML/OSYR ONE ×3 (03:55→17:52)
[2020-07-06 05:30] LABS: Absolute Lymphocytes (CBC) 0.3 K/uL (0.7-4.9); Basophils % 0.3 % (0-1.3); Hematocrit 36.3 % (36.0-45.0); Lymphocytes % 14.7 % (15.3-44.8); MPV 9.8 fL (7.6-11.3); RBC Red Blood Cell Count 4.49 M/uL (3.86-4.86)
[2020-07-06 06:05] LABS: C-Reactive Protein 92.9 mg/L (<3.00); Ferritin 390.8 ng/mL (8-388); Magnesium 2.2 mg/dL (1.8-2.4); Potassium 4.4 mmol/L (3.5-5.1)
[2020-07-06] MEDS ORDERED: PNEUMOCOCCAL VACCINE 0.5 ML IMVAC ONE (08:00)
[2020-07-06] MEDS: INSULIN -REGULAR HUMAN 50 UNIT/0.5 ML ML SQ SCH ×4 (08:25→22:47)
[2020-07-06] MEDS: ENOXAPARIN 40 MG/0.4 ML SQ SCH (08:28)
[2020-07-06] MEDS ORDERED: INSULIN -REGULAR HUMAN 50 UNIT/0.5 ML ML ONE ×3 (08:33→17:38)
[2020-07-06] MEDS ORDERED: ZINC SULFATE 220 MG CAP ONE (08:34)
[2020-07-06] MEDS ORDERED: ASPIRIN EC 81 MG TAB PO ONE (08:34)
[2020-07-06] MEDS ORDERED: VITAMIN D 1000 UNIT TAB ONE (08:34)
[2020-07-06] MEDS ORDERED: ENOXAPARIN 40 MG/0.4 ML SQ ONE (08:35)
[2020-07-06] MEDS ORDERED: ASCORBIC ACID 500 MG TABLET ONE ×2 (08:35→12:46)
[2020-07-06] MEDS: ZINC SULFATE 220 MG CAP PO SCH (08:56)
[2020-07-06] MEDS: ASCORBIC ACID 500 MG TABLET PO SCH ×3 (08:56→22:47)
[2020-07-06] MEDS: VITAMIN D 1000 UNIT TAB PO SCH (08:56)
[2020-07-06] MEDS: ASPIRIN EC 81 MG TAB PO SCH (08:56)
[2020-07-06] MEDS ORDERED: D50W 25 GM/50 ML SYRINGE IV PRN (09:13)
[2020-07-06] MEDS ORDERED: GLUCAGON 1 MG/VIAL IM PRN (09:13)
[2020-07-06 09:20] LABS: Blood Morphology Comment NOT SEEN (NOT SEEN); Platelet Estimate DECR; White Blood Cell Scan OK (OK)
--- NOTE | 2020-07-06 14:01 | P.PN ---
Subjective Date of Service: 07/06/20 Primary Care Provider: Bea Chief Complaint: COVID pneumonia with hypoxia Subjective: Other (some SOB with exertion.) Physical Examination - Vital Signs Temperature: 97.2 F Blood Pressure: 110/55 Pulse: 74 Respirations: 18 Pulse Ox (%): 91 - Physical Exam General: Alert, In no apparent distress HEENT: Atraumatic Neck: Supple Respiratory: Other (4 liters on L/Min) Cardiovascular: Normal pulses Neurological: Normal speech, Normal strength at 5/5 x4 extr, Normal tone, Normal affect - Studies Laboratory Data (last 24 hrs) 07/05/20 21:05: PT 11.9, INR 1.01 07/05/20 21:05: WBC 3.6 L, Hgb 11.8 L, Hct 36.1, Plt Count 148 L 07/05/20 21:05: Sodium 131 L, Potassium 3.7, BUN 17, Creatinine 0.89, Glucose 194 H, Magnesium 1.9, Total Bilirubin 0.3, AST 31, ALT 23, Alkaline Phosphatase 74 Medications List Reviewed: Yes Assessment & Plan Discharge Plan: Home Plan to discharge in: 48 Hours Physician Review Additional Text: Assessment Bilateral COVID pneumonia with hypoxia Diabetes mellitus type 2 Plan Bilateral COVID pneumonia with hypoxia: Patient require more oxygen this afternoon. Currently on 4 L. Still tachypneic and short of breath with exertion. Will continue to monitor and trend CRP, ferritin levels. Pulmonology consulted. Wean off oxygen. Continue with IV steroid. Start medication for DM. Will monitor overnight. If improved by tomorrow, then will need home oxygen. Diabetes mellitus type 2: A.c. HS Accu-Cheks, sliding scale insulin therapy. Restart Lantus. Will monitor and adjust meds. Time Spent Managing Pts Care (In Minutes): 55
--- NOTE | 2020-07-06 14:01 | P.CNS ---
Date of Consult: 07/06/20 Reason for Consult: Pneumonia due to izaguirre virus Primary Care Provider: Bea Chief Complaint: COVID pneumonia with hypoxia History of Present Illness: Patient is 80 years of age Czech-speaking only multiple risk factors including diabetes hypertension morbid obesity was diagnosed with izaguirre virus infection on 06/28 has been having worsening symptoms cough fever for in to the emergency room with hypoxemia family she is on nasal cannula oxygen stable Allergies No Known Drug Allergies Allergy (Verified 01/29/15 01:45) Unknown No Known Allergies Allergy (Uncoded 09/18/15 12:39) Unknown Home Medications: Gabapentin 300 mg PO TID 08/18/12 Escitalopram [Lexapro] 10 mg PO BEDTIME 01/28/15 Insulin Degludec [Tresiba] 45 units SQ DAILY 07/06/20 Liraglutide [Victoza 2-Krystian] 1.8 mg SQ DAILY 07/06/20 Losartan Potassium 100 mg PO DAILY 07/06/20 Metoprolol Succinate 25 mg PO DAILY 07/06/20 Omeprazole [Prilosec] 40 mg PO DAILY 07/06/20 Pioglitazone HCl [Actos] 30 mg PO DAILY 07/06/20 Tramadol HCl [Ultram] 50 mg PO BID PRN 07/06/20 - Past Medical/Surgical History Diabetic: Yes -: Diabetes mellitus type 2 -: cyst behind liver -: Hypertension -: cholecystectomy -: C section Psychosocial/ Personal History: Patient is retired and lives with her daughter - Family History Father Medical History: Hypertension, Lung disease, Cancer, Liver disease Mother Medical History: Diabetes - Social History Smoking Status: Former smoker Alcohol use: No CD- Drugs: No Caffeine use: Yes Place of Residence: Home Review of Systems is unable to be obtained Physical Examination Temp Pulse Resp BP Pulse Ox 97.2 F 74 18 110/55 L 91 07/06/20 08:00 07/06/20 08:00 07/06/20 08:00 07/06/20 08:00 07/06/20 08:00 General: Alert, Mild distress Laboratory Data (last 24 hrs) 07/05/20 21:05: PT 11.9, INR 1.01 07/05/20 21:05: WBC 3.6 L, Hgb 11.8 L, Hct 36.1, Plt Count 148 L 01/06/21 21:05: Sodium 131 L, Potassium 3.7, BUN 17, Creatinine 0.89, Glucose 194 H, Magnesium 1.9, Total Bilirubin 0.3, AST 31, ALT 23, Alkaline Phosphatase 74 - Problems (1) Acute respiratory failure due to severe acute respiratory syndrome coronavirus 2 (SARS-CoV-2) infection Current Visit: Yes Status: Acute Plan: Patient is 80 years of age admitted with respiratory failure from izaguirre virus she is morbidly obese multiple comorbid problems continue to monitor steroids white count is low no evidence of pulmonary embolus titrate sat to 90%
--- NOTE | 2020-07-06 19:50 | RAD REPORT ---
EXAM DESCRIPTION: Chest For Pe Angio CLINICAL HISTORY: Cough; dyspnea COMPARISON: 03/14/2017 TECHNIQUE: CTA of the chest obtained following the uncomplicated intravenous administration of iodin ated contrast. 3-D/MIP reformatted images of the chest available for evaluation. FINDINGS: Chest: Pulmonary arteries: Contrast bolus is adequate.No filling defects identified in the pulmonary arterie s to suggest pulmonary embolus. Thyroid: No abnormalities of the visualized thyroid. Great Vessels: Great vessels have normal anatomic configuration. Thoracic Aorta: Atherosclerotic calcification thoracic aorta. Heart: Coronary artery atherosclerosis. Cardiomegaly. Lymph Nodes: No enlarged mediastinal lymph nodes identified. Esophagus: No abnormalities of the esophagus identified. Other: No additional findings. Lungs: Diffuse multifocal bilateral central and peripheral groundglass and airspace opacities. Respir atory motion artifact. Pleura: No pleural effusion or pneumothorax. Trachea/Airways: No abnormalities of the visualized trachea or airways. Bones: Multilevel degenerative change of the spine. Upper Abdomen: Limited images of the upper abdomen demonstrate no definite abnormalities of visualize d portions of the liver, gallbladder, pancreas, spleen, or adrenal glands. Decreased since the liver. Stable 5.6 cm right hepatic cyst. IMPRESSION: 1. Multifocal bilateral diffuse groundglass and airspace opacities. Commonly reported im aging features of viral pneumonia are present. Other processes such as influenza pneumonia and organi zing pneumonia, as can be seen with drug toxicity and connective tissue disease, can cause a similar imaging pattern. PneTyp Reference: https://pubs.rsna.org/doi/full/10.1148/ryct.0192025589 2. No pulmonary embolus. 3. Cardiomegaly with coronary artery atherosclerosis. 4. Hepatic steatosis This exam was performed according to our departmental dose-optimization program, which includes autom ated exposure control, adjustment of the mA and/or kV according to patient size and/or use of iterati ve reconstruction technique. Electronically signed by: Aubrey Reynoso 07/05/2020 10:48 PM [facility] Due to temporary technical issues with the PACS/Fluency reporting system, reports are being signed by the in house radiologists without review as a courtesy to insure prompt reporting. The interpreting radiologist is fully responsible for the content of the report.
[2020-07-07] MEDS: METHYLPREDNISOLONE 40 MG INJ IV SCH ×3 (01:17→16:14)
[2020-07-07 07:14] LABS: Absolute Lymphocytes (CBC) 0.5 K/uL (0.7-4.9); Basophils % 0.2 % (0-1.3); Hematocrit 40.1 % (36.0-45.0); Lymphocytes % 6.3 % (15.3-44.8); MPV 10.3 fL (7.6-11.3); RBC Red Blood Cell Count 4.94 M/uL (3.86-4.86)
[2020-07-07] MEDS: INSULIN -REGULAR HUMAN 50 UNIT/0.5 ML ML SQ SCH ×4 (07:30→21:00)
[2020-07-07] MEDS ORDERED: INSULIN GLARGINE 100 UNITS/ML SQ SCH (08:00)
[2020-07-07] MEDS: VITAMIN D 1000 UNIT TAB PO SCH (08:46)
[2020-07-07] MEDS: ASPIRIN EC 81 MG TAB PO SCH (08:46)
[2020-07-07] MEDS: ASCORBIC ACID 500 MG TABLET PO SCH ×3 (08:47→22:00)
[2020-07-07] MEDS: ENOXAPARIN 40 MG/0.4 ML SQ SCH (08:47)
[2020-07-07] MEDS: ZINC SULFATE 220 MG CAP PO SCH (08:47)
[2020-07-07 09:32] LABS: C-Reactive Protein 52.8 mg/L (<3.00); Magnesium 2.3 mg/dL (1.8-2.4); Potassium 4.6 mmol/L (3.5-5.1)
--- NOTE | 2020-07-07 12:09 | P.PN ---
Subjective Date of Service: 07/07/20 Primary Care Provider: Bea Chief Complaint: COVID pneumonia with hypoxia Patient is not doing well her oxygen requirements have increased although she looks very comfortable Physical Examination - Vital Signs Temperature: 96.4 F Blood Pressure: 120/58 Pulse: 70 Respirations: 32 Pulse Ox (%): 82 - Studies Medications List Reviewed: Yes Assessment & Plan - Problems (Diagnosis) (1) Acute respiratory failure due to severe acute respiratory syndrome coronavirus 2 (SARS-CoV-2) infection Current Visit: Yes Status: Acute Plan: Patient is 80 years of age admitted with respiratory failure from izaguirre virus condition has become worse a continue with steroids anti inflammatory therapy blood sugars a higher need to be tightly control
--- NOTE | 2020-07-07 13:31 | P.PN ---
Subjective Date of Service: 07/07/20 Primary Care Provider: Bea Chief Complaint: COVID pneumonia with hypoxia Subjective: Other (doing better. Requiring high flow) Physical Examination - Vital Signs Temperature: 96.4 F Blood Pressure: 120/58 Pulse: 70 Respirations: 32 Pulse Ox (%): 82 - Physical Exam General: Alert, In no apparent distress, Cooperative HEENT: Atraumatic Neck: Supple Respiratory: Other (high flow) Cardiovascular: Normal pulses Neurological: Normal speech, Normal strength at 5/5 x4 extr, Normal tone, Normal affect - Studies Medications List Reviewed: Yes Assessment & Plan Discharge Plan: Home Plan to discharge in: 72 Hours Physician Review Additional Text: Assessment Acute respiratory failure with hypoxia secondary to Bilateral COVID pneumonia Diabetes mellitus type 2 Obesity, BMI 39 Plan Acute respiratory failure with hypoxia secondary to Bilateral COVID pneumonia: Patient required more oxygen. Currently on high-flow. Will have respiratory continue to wean off. High-flow adjusted. Continue IV steroids. Will provide medication for anxiety. Continue to monitor and trend CRP and ferritin. Case discussed with pulmonology. Will need to get diabetes better controlled. Will adjust insulin appropriately. Case discussed with patient and daughter. If no significant improvement will need to think about adding additional medication. Will continue to monitor closely. Reassess in the next 24 hr. Diabetes mellitus type 2: A.c. HS Accu-Cheks, sliding scale insulin therapy. Continue to adjust Lantus for better control. Will increase sliding scale to aggressive. Time Spent Managing Pts Care (In Minutes): 55
[2020-07-07] MEDS ORDERED: D50W 25 GM/50 ML VIAL IV PRN (17:36)
[2020-07-07] MEDS: HYDROCODONE/CHLORPHEN 5 ML/OSYR PO PRN (18:57)
[2020-07-07] MEDS ORDERED: MELATONIN 3 MG TABLET PO SCH (21:00)
[2020-07-07] MEDS: MELATONIN 5 MG TABLET PO SCH (22:20)
[2020-07-07] MEDS: ATORVASTATIN 40 MG TAB PO SCH (22:20)
[2020-07-08] MEDS: METHYLPREDNISOLONE 40 MG INJ IV SCH ×3 (00:38→17:00)
[2020-07-08] MEDS: LORazepam 2 MG/ML VIAL IV PRN (02:10)
[2020-07-08] MEDS: ONDANSETRON 4 MG/2 ML VIAL IV PRN (06:50)
[2020-07-08] MEDS: HYDROCODONE/CHLORPHEN 5 ML/OSYR PO PRN (06:50)
[2020-07-08] MEDS ORDERED: INSULIN GLARGINE 100 UNITS/ML SQ SCH (08:00)
[2020-07-08] MEDS ORDERED: TRAMADOL HCL 50 MG TAB PO PRN (08:03)
[2020-07-08 08:11] LABS: C-Reactive Protein 56.1 mg/L (<3.00); Ferritin 440.1 ng/mL (8-388)
--- NOTE | 2020-07-08 08:11 | P.PN ---
Subjective Date of Service: 07/08/20 Primary Care Provider: Bea Chief Complaint: COVID pneumonia with hypoxia Subjective: Other (Patient with increased anxiety. Medication has been given. Still with shortness of breath. Patient currently on BiPAP. Some nausea this morning.) Physical Examination - Vital Signs Temperature: 97.5 F Blood Pressure: 142/65 Pulse: 78 Respirations: 28 Pulse Ox (%): 91 - Physical Exam General: Alert, Other (Increase anxiety) HEENT: Atraumatic Neck: Supple Respiratory: Other (Patient on BiPAP. She does not appear in significant respiratory distress.) Cardiovascular: Normal pulses Gastrointestinal: Other (Mild epigastric pain) Neurological: Normal speech, Normal strength at 5/5 x4 extr, Normal tone, Abnormal affect (Increase anxiety) - Studies Medications List Reviewed: Yes Assessment & Plan Discharge Plan: Home Plan to discharge in: 72 Hours Physician Review Additional Text: Assessment Acute respiratory failure with hypoxia secondary to Bilateral COVID pneumonia Diabetes mellitus type 2 Hypertension Depression with anxiety GERD Chronic diabetic neuropathy Obesity, BMI 39 Plan Acute respiratory failure with hypoxia secondary to Bilateral COVID pneumonia: Patient now requiring BiPAP. She had some difficulty keeping the Mask on due to anxiety. Increase anxiety noted. Will provide medication for anxiety. Restart Celexa. Continue with current IV steroids. Continue to monitor inflammatory markers. Will try to wean off BiPAP. Maintain oxygen above 93%. Continue to adjust insulin for better diabetic control. Will discuss with pulmonology. Will transfer patient to the ICU to make sure patient keeps mask on and to better monitor her. Will add Pepcid. Provide medication for nausea. Will continue to monitor. Will update family. Diabetes mellitus type 2: A.c. HS Accu-Cheks, sliding scale insulin therapy. Continue to adjust Lantus for better control. Continue aggressive control of diabetes. Hypertension: Restart metoprolol. Depression with anxiety: Restart Celexa. Provide medication for anxiety. GERD: Mild nausea noted. Will provide medication. Will start Pepcid. Chronic diabetic neuropathy: Will provide medication for pain Obesity, BMI 39: Will address lifestyle modification Time Spent Managing Pts Care (In Minutes): 55
[2020-07-08] MEDS: PROMETHAZINE INJ 25 MG/ML AMP IV PRN ×2 (08:50→17:00)
[2020-07-08] MEDS: ENOXAPARIN 40 MG/0.4 ML SQ SCH (08:51)
[2020-07-08] MEDS: INSULIN -REGULAR HUMAN 50 UNIT/0.5 ML ML SQ SCH ×4 (08:52→19:36)
[2020-07-08] MEDS: ASPIRIN EC 81 MG TAB PO SCH (09:00)
[2020-07-08] MEDS: FAMOTIDINE 20 MG/2 ML VIAL IV SCH ×2 (09:00→19:37)
[2020-07-08] MEDS: ASCORBIC ACID 500 MG TABLET PO SCH ×3 (09:00→19:35)
[2020-07-08] MEDS ORDERED: VITAMIN D 1000 UNIT TAB PO SCH (09:00)
[2020-07-08] MEDS: ZINC SULFATE 220 MG CAP PO SCH (09:00)
[2020-07-08] MEDS: METOPROLOL XL 25 MG TAB PO SCH (09:00)
[2020-07-08] MEDS ORDERED: THIAMINE HCL 100 MG TABLET PO SCH (09:00)
[2020-07-08] MEDS: THIAMINE HCL 100 MG TABLET PO SCH (09:00)
[2020-07-08] MEDS: VITAMIN D 1000 UNIT TAB PO SCH (09:00)
[2020-07-08] MEDS ORDERED: Remdesivir 200 MG in NA CHLORIDE 0.9% 250 ML IV ONE (15:00)
--- NOTE | 2020-07-08 15:36 | RAD REPORT ---
EXAM DESCRIPTION: RAD - Chest Single View - 07/08/2020 2:32 pm CLINICAL HISTORY: Follow up COVID, had nausea, pneumonia COMPARISON: July 05 portable chest, July 05 CT chest TECHNIQUE: AP portable chest image was obtained 07/08/2020 2:32 pm . FINDINGS: Lung volumes are low. Bilateral airspace opacification is present in both lung ness. Fin dings are slightly worse in the right upper lobe. Left lung field is not substantially different. Heart and vasculature are normal. No measurable pleural effusion and no pneumothorax. No acute bony abnormality seen. No acute aortic findings suspected. IMPRESSION: Bilateral pneumonia pattern showing slight progression in the right upper lobe since rosalva or imaging.
[2020-07-08] MEDS: ESCITALOPRAM 20 MG TAB PO SCH (19:35)
[2020-07-08] MEDS: MELATONIN 5 MG TABLET PO SCH (19:36)
[2020-07-08] MEDS: ATORVASTATIN 40 MG TAB PO SCH (19:36)
[2020-07-08] MEDS ORDERED: ESCITALOPRAM 10 MG PO SCH (21:00)
[2020-07-09] MEDS: METHYLPREDNISOLONE 40 MG INJ IV SCH ×3 (00:21→17:33)
[2020-07-09 07:27] LABS: Absolute Lymphocytes (CBC) 0.4 K/uL (0.7-4.9); Basophils % 0.1 % (0-1.3); Hematocrit 37.3 % (36.0-45.0); Lymphocytes % 3.7 % (15.3-44.8); MPV 10.5 fL (7.6-11.3); RBC Red Blood Cell Count 4.59 M/uL (3.86-4.86)
[2020-07-09] MEDS: INSULIN -REGULAR HUMAN 50 UNIT/0.5 ML ML SQ SCH ×4 (07:30→21:45)
[2020-07-09 08:20] LABS: ALT/SGPT 19 U/L (12-78); AST/SGOT 23 U/L (15-37); Albumin 2.3 g/dL (3.4-5.0); Alkaline Phosphatase 76 U/L (45-117); BUN Blood Urea Nitrogen 22 mg/dL (7-18); Bicarbonate 32 mmol/L (21-32); Bilirubin Direct < 0.1 mg/dL (0-0.2); Bilirubin Total 0.4 mg/dL (0.2-1.0); Ferritin 418.7 ng/mL (8-388); Glucose Level 141 mg/dL (74-106); Potassium 4.8 mmol/L (3.5-5.1); Protein, Total 6.5 g/dL (6.4-8.2); Sodium Level 144 mmol/L (136-145)
[2020-07-09] MEDS: VITAMIN D 1000 UNIT TAB PO SCH (09:00)
[2020-07-09] MEDS: METOPROLOL XL 25 MG TAB PO SCH (09:00)
[2020-07-09] MEDS ORDERED: Remdesivir 100 MG in NA CHLORIDE 0.9% 250 ML IV SCH ×2 (09:00→21:00)
[2020-07-09] MEDS: ENOXAPARIN 40 MG/0.4 ML SQ SCH (09:29)
[2020-07-09] MEDS: ZINC SULFATE 220 MG CAP PO SCH (09:30)
[2020-07-09] MEDS: ASPIRIN EC 81 MG TAB PO SCH (09:30)
[2020-07-09] MEDS: ASCORBIC ACID 500 MG TABLET PO SCH ×3 (09:30→21:33)
[2020-07-09] MEDS: THIAMINE HCL 100 MG TABLET PO SCH (09:30)
[2020-07-09] MEDS: Remdesivir 100 MG in NA CHLORIDE 0.9% 250 ML IV SCH (09:32)
[2020-07-09] MEDS: FAMOTIDINE 20 MG/2 ML VIAL IV SCH (09:32)
[2020-07-09] MEDS: INSULIN GLARGINE 100 UNITS/ML SQ SCH (09:33)
[2020-07-09 10:00] LABS: Blood Morphology Comment NOT SEEN (NOT SEEN); Platelet Estimate ADEQ
--- NOTE | 2020-07-09 11:52 | P.PN ---
Subjective Date of Service: 07/09/20 Primary Care Provider: Bea Chief Complaint: COVID pneumonia with hypoxia Subjective: Other (Patient appears stable. Currently on BiPAP at 90%.) Physical Examination - Vital Signs Temperature: 97 F Blood Pressure: 122/73 Pulse: 57 Respirations: 36 Pulse Ox (%): 91 - Physical Exam General: Alert, In no apparent distress, Cooperative, Other (Patient talking appropriately) HEENT: Atraumatic Respiratory: Other (Patient on 90% Fi02 BiPAP. No distress noted) Cardiovascular: Normal pulses Neurological: Normal speech, Normal strength at 5/5 x4 extr, Normal tone, Normal affect - Studies Medications List Reviewed: Yes Assessment & Plan Discharge Plan: Home Plan to discharge in: 72 Hours Physician Review Additional Text: Assessment Acute respiratory failure with hypoxia secondary to Bilateral COVID pneumonia Diabetes mellitus type 2 Hypertension Depression with anxiety GERD Chronic diabetic neuropathy Obesity, BMI 39 Plan Acute respiratory failure with hypoxia secondary to Bilateral COVID pneumonia: Patient remains on BiPAP at 90% Fi02. Respiratory to continue to wean off. Anxiety medication provided. Celexa restarted. Continue with IV steroids and Remdesivir. Continue to adjust insulin for better diabetic control. Case discussed with pulmonology who agrees with plan of care. Will discuss with family later. Anticipate improvement over the next 72 hr. I will turn the service over to the hospitalist team tomorrow. I will go plan of care with him. Diabetes mellitus type 2: A.c. HS Accu-Cheks, sliding scale insulin therapy. Continue to adjust Lantus for better control. Continue aggressive control of diabetes. Hypertension: Continue metoprolol. Depression with anxiety: Continue Celexa. Ativan added for anxiety. GERD: Mild nausea noted. Will provide medication. Continued Pepcid. Chronic diabetic neuropathy: Will provide medication for pain Obesity, BMI 39: Will address lifestyle modification Time Spent Managing Pts Care (In Minutes): 55
[2020-07-09] MEDS: FAMOTIDINE 20 MG TAB PO SCH (13:30)
--- NOTE | 2020-07-09 15:05 | P.PN ---
Subjective Date of Service: 07/12/20 Primary Care Provider: Bea Chief Complaint: COVID pneumonia with hypoxia No change still hypoxic. tolerating BIPAp Physical Examination - Vital Signs Temperature: 96.8 F Blood Pressure: 112/60 Pulse: 60 Respirations: 29 Pulse Ox (%): 90 - Studies Medications List Reviewed: Yes Assessment & Plan - Problems (Diagnosis) (1) Acute respiratory failure due to severe acute respiratory syndrome coron avirus 2 (SARS-CoV-2) infection Current Visit: Yes Status: Acute Plan: Resp failure from COVID. Add MEtformin and Sitagliptin. Full antocoagualtion. Still very hpoxic. Morbid obesity. Labs rev.. Ad Low dose spironolactone
[2020-07-09] MEDS: SITAGLIPTIN PHOS 100 MG TAB PO SCH (15:27)
[2020-07-09] MEDS: SPIRONOLACTONE 25 MG TABLET PO SCH (15:28)
[2020-07-09] MEDS: METFORMIN HCL 500 MG TAB PO SCH (17:33)
[2020-07-09] MEDS ORDERED: INFLUENZA VACCINE (for 3y+) 0.5 ML DOSE IMVAC ONE (18:00)
[2020-07-09] MEDS: ESCITALOPRAM 20 MG TAB PO SCH (21:32)
[2020-07-09] MEDS: APIXABAN 5 MG TABLET PO SCH (21:33)
[2020-07-09] MEDS: MELATONIN 5 MG TABLET PO SCH (21:33)
[2020-07-09] MEDS: ATORVASTATIN 40 MG TAB PO SCH (21:33)
[2020-07-10] MEDS: METHYLPREDNISOLONE 40 MG INJ IV SCH ×2 (00:46→09:00)
[2020-07-10 03:57] LABS: Absolute Lymphocytes (CBC) 0.3 K/uL (0.7-4.9); Basophils % 0.1 % (0-1.3); MPV 10.2 fL (7.6-11.3); RBC Red Blood Cell Count 4.66 M/uL (3.86-4.86)
[2020-07-10 04:22] LABS: ALT/SGPT 21 U/L (12-78); AST/SGOT 17 U/L (15-37); Albumin 2.3 g/dL (3.4-5.0); Alkaline Phosphatase 78 U/L (45-117); BUN Blood Urea Nitrogen 22 mg/dL (7-18); Bicarbonate 34 mmol/L (21-32); Bilirubin Direct 0.1 mg/dL (0-0.2); Bilirubin Total 0.4 mg/dL (0.2-1.0); Glucose Level 200 mg/dL (74-106); Potassium 4.7 mmol/L (3.5-5.1); Protein, Total 6.4 g/dL (6.4-8.2); Sodium Level 144 mmol/L (136-145)
[2020-07-10] MEDS: ONDANSETRON 4 MG/2 ML VIAL IV PRN (05:10)
[2020-07-10] MEDS: METOPROLOL XL 25 MG TAB PO SCH (05:37)
[2020-07-10] MEDS: INSULIN -REGULAR HUMAN 50 UNIT/0.5 ML ML SQ SCH ×4 (08:00→21:03)
--- NOTE | 2020-07-10 08:23 | RAD REPORT ---
EXAM DESCRIPTION: Manuel Single View07/10/2020 7:53 am CLINICAL HISTORY: Chest pain COMPARISON: July 08 FINDINGS: Mild worsening in the extensive bilateral pulmonary opacities. The heart is mildly enlarg ed IMPRESSION: Mild worsening in the extensive bilateral pulmonary opacities
[2020-07-10] MEDS: ASCORBIC ACID 500 MG TABLET PO SCH ×3 (08:45→21:01)
[2020-07-10] MEDS: ZINC SULFATE 220 MG CAP PO SCH (08:45)
[2020-07-10] MEDS: SITAGLIPTIN PHOS 100 MG TAB PO SCH (08:45)
[2020-07-10] MEDS: ASPIRIN EC 81 MG TAB PO SCH (08:45)
[2020-07-10] MEDS: SPIRONOLACTONE 25 MG TABLET PO SCH (08:45)
[2020-07-10] MEDS: METFORMIN HCL 500 MG TAB PO SCH ×2 (08:45→17:00)
[2020-07-10] MEDS: THIAMINE HCL 100 MG TABLET PO SCH (08:45)
[2020-07-10] MEDS: VITAMIN D 1000 UNIT TAB PO SCH (08:45)
[2020-07-10] MEDS: FAMOTIDINE 20 MG TAB PO SCH (08:45)
[2020-07-10] MEDS: INSULIN GLARGINE 100 UNITS/ML SQ SCH (08:46)
[2020-07-10] MEDS: PROMETHAZINE INJ 25 MG/ML AMP IV PRN ×3 (09:14→21:02)
[2020-07-10] MEDS: APIXABAN 5 MG TABLET PO SCH ×2 (09:14→21:01)
[2020-07-10] MEDS: METHYLPREDNISOLONE 125 MG INJ IV SCH ×2 (10:00→17:32)
[2020-07-10] MEDS: Remdesivir 100 MG in NA CHLORIDE 0.9% 250 ML IV SCH (14:20)
[2020-07-10] MEDS ORDERED: METHYLPREDNISOLONE 125 MG INJ IV SCH (17:00)
[2020-07-10] MEDS: ESCITALOPRAM 20 MG TAB PO SCH (21:00)
[2020-07-10] MEDS: MELATONIN 5 MG TABLET PO SCH (21:01)
[2020-07-10] MEDS: ATORVASTATIN 40 MG TAB PO SCH (21:01)
[2020-07-10] MEDS: LORazepam 2 MG/ML VIAL IV PRN (21:02)
[2020-07-11] MEDS: FUROSEMIDE 20 MG/ 2ML VIAL IV SCH (01:27)
[2020-07-11] MEDS: METHYLPREDNISOLONE 125 MG INJ IV SCH ×2 (01:51→09:51)
[2020-07-11 03:59] LABS: Absolute Lymphocytes (CBC) 0.4 K/uL (0.7-4.9); Basophils % 0.1 % (0-1.3); Hematocrit 39.3 % (36.0-45.0); MPV 10.1 fL (7.6-11.3); RBC Red Blood Cell Count 4.81 M/uL (3.86-4.86)
[2020-07-11 04:23] LABS: ALT/SGPT 19 U/L (12-78); AST/SGOT 20 U/L (15-37); Albumin 2.4 g/dL (3.4-5.0); Alkaline Phosphatase 80 U/L (45-117); BUN Blood Urea Nitrogen 21 mg/dL (7-18); Bicarbonate 35 mmol/L (21-32); Bilirubin Direct 0.2 mg/dL (0-0.2); Bilirubin Total 0.6 mg/dL (0.2-1.0); Ferritin 350.5 ng/mL (8-388); Glucose Level 120 mg/dL (74-106); Magnesium 2.3 mg/dL (1.8-2.4); NT PRO-BNP 362 pg/mL (<450); Phosphorus 3.7 mg/dL (2.5-4.9); Protein, Total 6.4 g/dL (6.4-8.2); Sodium Level 146 mmol/L (136-145)
[2020-07-11] MEDS: LORazepam 2 MG/ML VIAL IV PRN ×3 (07:34→23:37)
[2020-07-11] MEDS: VITAMIN D 1000 UNIT TAB PO SCH (09:48)
[2020-07-11] MEDS: APIXABAN 5 MG TABLET PO SCH ×2 (09:49→22:12)
[2020-07-11] MEDS: ZINC SULFATE 220 MG CAP PO SCH (09:49)
[2020-07-11] MEDS: ASCORBIC ACID 500 MG TABLET PO SCH ×3 (09:49→22:13)
[2020-07-11] MEDS: ASPIRIN EC 81 MG TAB PO SCH (09:49)
[2020-07-11] MEDS: FAMOTIDINE 20 MG TAB PO SCH (09:49)
[2020-07-11] MEDS: METOPROLOL XL 25 MG TAB PO SCH (09:50)
[2020-07-11] MEDS: THIAMINE HCL 100 MG TABLET PO SCH (09:50)
[2020-07-11] MEDS: SITAGLIPTIN PHOS 100 MG TAB PO SCH (09:50)
[2020-07-11] MEDS: SPIRONOLACTONE 25 MG TABLET PO SCH (09:51)
[2020-07-11] MEDS: METFORMIN HCL 500 MG TAB PO SCH ×2 (09:51→17:14)
[2020-07-11] MEDS: INSULIN -REGULAR HUMAN 50 UNIT/0.5 ML ML SQ SCH ×4 (09:52→21:00)
[2020-07-11] MEDS: INSULIN GLARGINE 100 UNITS/ML SQ SCH (09:52)
--- NOTE | 2020-07-11 10:06 | P.PN ---
Subjective Date of Service: 07/10/20 Subjective: No new changes, No C/O voiced, Improving Review of Systems 10-point ROS is otherwise unremarkable Physical Examination - Vital Signs Temperature: 96.9 F Blood Pressure: 111/58 Pulse: 94 Respirations: 24 Pulse Ox (%): 82 - Physical Exam General: Alert, In no apparent distress, Oriented x3 Respiratory: Clear to auscultation bilaterally, Normal air movement Cardiovascular: Regular rate/rhythm, Normal S1 S2 Gastrointestinal: Normal bowel sounds, No tenderness Musculoskeletal: No tenderness Integumentary: No rashes Neurological: Normal speech, Normal tone, Normal affect Lymphatics: No axilla or inguinal lymphadenopathy - Studies Microbiology Data (last 24 hrs): 07/05/20 21:15 Blood - Blood Aerobic Blood Culture - Final No growth in 5 days. 07/05/20 21:15 Blood - Blood Anaerobic Blood Culture - Final No growth in 5 days. 07/05/20 21:05 Blood - Blood Aerobic Blood Culture - Final No growth in 5 days. 07/05/20 21:05 Blood - Blood Anaerobic Blood Culture - Final No growth in 5 days. 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 Continue with BiPAP support 2. Continue Remdesivir and IV steroids 3. Monitor labs and LFTs 4. Patient at this time is a full code 5. GI and DVT prophylaxis Discharge Plan: Home Plan to discharge in: Greater than 2 days - Advance Directives Does patient have a Living Will: No Does patient have a Durable POA for Healthcare: No - Code Status/Comfort Care Code Status Assessed: Yes Code Status: Full Code Critical Care: No Time Spent Managing PTS Care (In Minutes): 35
--- NOTE | 2020-07-11 10:16 | P.PN ---
Subjective Date of Service: 07/11/20 Subjective: Improving Patient took her oxygen off and she desatted. They did call a rapid response but patient stabilize fairly quickly. Patient looks to be a little restless in bed. She is maintaining sats of 95% on her BiPAP. Continue closely monitoring at this time. Continue IV steroids. Inflammatory markers are improved. D- dimer elevated. Review of Systems 10-point ROS is otherwise unremarkable Physical Examination - Vital Signs Temperature: 96.9 F Blood Pressure: 111/58 Pulse: 94 Respirations: 24 Pulse Ox (%): 82 - Physical Exam General: Alert, In no apparent distress, Oriented x3 HEENT: EOMI Respiratory: Clear to auscultation bilaterally, Normal air movement Cardiovascular: Regular rate/rhythm, Normal S1 S2, No murmurs Gastrointestinal: Normal bowel sounds, Soft and benign, Non-distended, No tenderness Musculoskeletal: No clubbing, No swelling, No tenderness Neurological: Sensation intact, Cranial nerves 3-12 intact - Studies Microbiology Data (last 24 hrs): 07/05/20 21:15 Blood - Blood Aerobic Blood Culture - Final No growth in 5 days. 07/05/20 21:15 Blood - Blood Anaerobic Blood Culture - Final No growth in 5 days. 07/05/20 21:05 Blood - Blood Aerobic Blood Culture - Final No growth in 5 days. 07/05/20 21:05 Blood - Blood Anaerobic Blood Culture - Final No growth in 5 days. 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 Continue with IV antibiotics 2. Continue with antiviral therapy; 10/02 3. Repeat chest x-ray is symptoms are progressively worsening 4. O2 per protocol 5. Pulmonary consultation appreciated 6. Continue with supportive care 7. O2 per protocol 8. Monitor LFTs 9. Monitor inflammatory markers 10. GI and DVT prophylaxis Discharge Plan: Home Plan to discharge in: Greater than 2 days - Advance Directives Does patient have a Living Will: No Does patient have a Durable POA for Healthcare: No - Code Status/Comfort Care Code Status Assessed: Yes Code Status: Full Code Critical Care: No Time Spent Managing PTS Care (In Minutes): 35
--- NOTE | 2020-07-11 12:10 | P.PN ---
Subjective Date of Service: 07/11/20 Primary Care Provider: Bea Chief Complaint: COVID pneumonia with hypoxia Respiratory failure still continues to remain hypoxic requiring maximal support Review of Systems General: Weakness Respiratory: Shortness of Breath Physical Examination - Vital Signs Temperature: 96.3 F Blood Pressure: 129/60 Pulse: 91 Respirations: 22 Pulse Ox (%): 92 - Studies Microbiology Data (last 24 hrs): 07/05/20 21:15 Blood - Blood Aerobic Blood Culture - Final No growth in 5 days. 07/05/20 21:15 Blood - Blood Anaerobic Blood Culture - Final No growth in 5 days. 07/05/20 21:05 Blood - Blood Aerobic Blood Culture - Final No growth in 5 days. 07/05/20 21:05 Blood - Blood Anaerobic Blood Culture - Final No growth in 5 days. Medications List Reviewed: Yes Assessment & Plan - Problems (Diagnosis) (1) Acute respiratory failure due to severe acute respiratory syndrome coronavirus 2 (SARS-CoV-2) infection Current Visit: Yes Status: Acute Plan: Respiratory failure no change on BiPAP and maximal support under percent FiO2 blood sugars elevated reduce dose of Solu-Medrol . Statins ferritin levels decl ining
[2020-07-11] MEDS: Remdesivir 100 MG in NA CHLORIDE 0.9% 250 ML IV SCH (13:04)
[2020-07-11] MEDS ORDERED: PNEUMOCOCCAL VACCINE 0.5 ML IMVAC ONE (16:00)
[2020-07-11] MEDS: METHYLPREDNISOLONE 40 MG INJ IV SCH (17:14)
[2020-07-11] MEDS: ESCITALOPRAM 20 MG TAB PO SCH (22:12)
[2020-07-11] MEDS: MELATONIN 5 MG TABLET PO SCH (22:13)
[2020-07-12] MEDS: METHYLPREDNISOLONE 40 MG INJ IV SCH ×3 (01:27→20:54)
[2020-07-12 04:51] LABS: Albumin 2.3 g/dL (3.4-5.0); Bilirubin Direct 0.2 mg/dL (0-0.2); Bilirubin Total 0.6 mg/dL (0.2-1.0); Protein, Total 6.4 g/dL (6.4-8.2)
[2020-07-12 07:13] LABS: C-Reactive Protein 44.8 mg/L (<3.00); Ferritin 368.6 ng/mL (8-388); Magnesium 2.4 mg/dL (1.8-2.4); Potassium 3.9 mmol/L (3.5-5.1)
[2020-07-12] MEDS: INSULIN -REGULAR HUMAN 50 UNIT/0.5 ML ML SQ SCH ×4 (07:30→20:55)
[2020-07-12] MEDS: LORazepam 2 MG/ML VIAL IV PRN (07:39)
[2020-07-12] MEDS: ASCORBIC ACID 500 MG TABLET PO SCH ×3 (08:55→20:54)
[2020-07-12] MEDS: APIXABAN 5 MG TABLET PO SCH ×2 (08:55→20:55)
[2020-07-12] MEDS: METOPROLOL XL 25 MG TAB PO SCH (08:55)
[2020-07-12] MEDS: FAMOTIDINE 20 MG TAB PO SCH (08:55)
[2020-07-12] MEDS: METFORMIN HCL 500 MG TAB PO SCH ×2 (08:55→17:32)
[2020-07-12] MEDS: ASPIRIN EC 81 MG TAB PO SCH (08:56)
[2020-07-12] MEDS: SITAGLIPTIN PHOS 100 MG TAB PO SCH (09:00)
[2020-07-12] MEDS: FUROSEMIDE 20 MG/ 2ML VIAL IV SCH ×2 (09:02→17:09)
[2020-07-12] MEDS: VITAMIN D 1000 UNIT TAB PO SCH (09:15)
[2020-07-12] MEDS: THIAMINE HCL 100 MG TABLET PO SCH (09:16)
[2020-07-12] MEDS: SPIRONOLACTONE 25 MG TABLET PO SCH (09:16)
[2020-07-12] MEDS: ZINC SULFATE 220 MG CAP PO SCH (09:16)
[2020-07-12] MEDS: INSULIN GLARGINE 100 UNITS/ML SQ SCH (09:17)
[2020-07-12] MEDS: Remdesivir 100 MG in NA CHLORIDE 0.9% 250 ML IV SCH (09:55)
--- NOTE | 2020-07-12 12:21 | P.PN ---
Subjective Date of Service: 07/12/20 Primary Care Provider: Bea Chief Complaint: COVID pneumonia with hypoxia Respiratory failure still hypoxic requiring high concentrations of oxygen Review of Systems is unable to be obtained Physical Examination - Vital Signs Temperature: 98.2 F Blood Pressure: 120/64 Pulse: 81 Respirations: 33 Pulse Ox (%): 85 - Studies Medications List Reviewed: Yes Assessment & Plan - Problems (Diagnosis) (1) Acute respiratory failure due to severe acute respiratory syndrome coronavirus 2 (SARS-CoV-2) infection Current Visit: Yes Status: Acute Plan: Respiratory failure continue with supportive treatment reduce dose of Solu- Medrol to b.i.d. blood sugars control no evidence of sepsis patient is on high level BiPAP support started on Lasix today ferritin levels order
[2020-07-12] MEDS: MELATONIN 5 MG TABLET PO SCH (20:54)
[2020-07-12] MEDS: ESCITALOPRAM 20 MG TAB PO SCH (20:54)
[2020-07-13] MEDS: FUROSEMIDE 20 MG/ 2ML VIAL IV SCH ×3 (00:22→17:48)
[2020-07-13 04:17] LABS: BUN Blood Urea Nitrogen 22 mg/dL (7-18); Bicarbonate 35 mmol/L (21-32); Ferritin 345.9 ng/mL (8-388); Glucose Level 101 mg/dL (74-106); Sodium Level 145 mmol/L (136-145)
[2020-07-13] MEDS: INSULIN -REGULAR HUMAN 50 UNIT/0.5 ML ML SQ SCH ×4 (07:30→21:00)
[2020-07-13] MEDS: ZINC SULFATE 220 MG CAP PO SCH (09:00)
[2020-07-13] MEDS: FAMOTIDINE 20 MG TAB PO SCH (09:00)
[2020-07-13] MEDS: ASCORBIC ACID 500 MG TABLET PO SCH ×3 (09:00→21:20)
[2020-07-13] MEDS: VITAMIN D 1000 UNIT TAB PO SCH (09:00)
[2020-07-13] MEDS: THIAMINE 200 MG/2 ML INJ IVP SCH ×2 (09:00→21:22)
[2020-07-13] MEDS: METOPROLOL XL 25 MG TAB PO SCH (09:00)
[2020-07-13] MEDS: APIXABAN 5 MG TABLET PO SCH ×2 (09:24→21:21)
[2020-07-13] MEDS: SITAGLIPTIN PHOS 100 MG TAB PO SCH (09:24)
[2020-07-13] MEDS: SPIRONOLACTONE 25 MG TABLET PO SCH (09:24)
[2020-07-13] MEDS: METFORMIN HCL 500 MG TAB PO SCH ×2 (09:24→17:41)
[2020-07-13] MEDS: ASPIRIN EC 81 MG TAB PO SCH (09:24)
[2020-07-13] MEDS: INSULIN GLARGINE 100 UNITS/ML SQ SCH (09:25)
[2020-07-13] MEDS: METHYLPREDNISOLONE 40 MG INJ IV SCH ×2 (09:25→21:19)
[2020-07-13] MEDS ORDERED: IVERMECTIN 3 MG TABLETS PO ONE (09:30)
[2020-07-13] MEDS: LORazepam 2 MG/ML VIAL IV PRN (11:56)
--- NOTE | 2020-07-13 13:51 | P.PN ---
Subjective Date of Service: 07/13/20 Primary Care Provider: Bea Chief Complaint: COVID pneumonia with hypoxia patient continues to remain very hypoxic Review of Systems is unable to be obtained Physical Examination - Vital Signs Temperature: 97.3 F Blood Pressure: 138/77 Pulse: 107 Respirations: 32 Pulse Ox (%): 87 - Studies Medications List Reviewed: Yes Assessment & Plan - Problems (Diagnosis) (1) Acute respiratory failure due to severe acute respiratory syndrome coronavirus 2 (SARS-CoV-2) infection Current Visit: Yes Status: Acute Plan: respiratory failure still continues to remain hypoxic EPAP level has been increased labs reviewed had 1 dose of ivermectin maximize supplemental therapy labs reviewed
[2020-07-13] MEDS: MELATONIN 5 MG TABLET PO SCH (21:21)
[2020-07-13] MEDS: ESCITALOPRAM 20 MG TAB PO SCH (21:23)
[2020-07-14] MEDS: FUROSEMIDE 20 MG/ 2ML VIAL IV SCH ×3 (00:29→22:44)
[2020-07-14] MEDS ORDERED: LORazepam 2 MG/ML VIAL IV PRN (05:23)
[2020-07-14] MEDS: INSULIN -REGULAR HUMAN 50 UNIT/0.5 ML ML SQ SCH ×4 (07:46→21:00)
[2020-07-14] MEDS: ASCORBIC ACID 500 MG TABLET PO SCH ×3 (09:00→22:31)
[2020-07-14] MEDS: FAMOTIDINE 20 MG TAB PO SCH (09:00)
[2020-07-14] MEDS: ZINC SULFATE 220 MG CAP PO SCH (09:00)
[2020-07-14] MEDS: VITAMIN D 1000 UNIT TAB PO SCH (09:00)
[2020-07-14] MEDS: THIAMINE 200 MG/2 ML INJ IVP SCH (09:00)
[2020-07-14] MEDS: METHYLPREDNISOLONE 40 MG INJ IV SCH (09:05)
[2020-07-14] MEDS: SITAGLIPTIN PHOS 100 MG TAB PO SCH (09:05)
[2020-07-14] MEDS: APIXABAN 5 MG TABLET PO SCH ×2 (09:06→22:37)
[2020-07-14] MEDS: SPIRONOLACTONE 25 MG TABLET PO SCH (09:06)
[2020-07-14] MEDS: METOPROLOL XL 25 MG TAB PO SCH (09:06)
[2020-07-14] MEDS: METFORMIN HCL 500 MG TAB PO SCH ×2 (09:06→16:47)
[2020-07-14] MEDS: ASPIRIN EC 81 MG TAB PO SCH (09:06)
[2020-07-14] MEDS: INSULIN GLARGINE 100 UNITS/ML SQ SCH ×2 (09:07→22:39)
--- NOTE | 2020-07-14 12:01 | P.PN ---
Date of Service: 07/12/20 Subjective Subjective: Pt is still very tachypneic; spoke her with cultural link; come Review of Systems 10-point ROS is otherwise unremarkable Physical Examination - Vital Signs reviewed - Physical Exam General: Alert, In no apparent distress, Oriented x3; morbid obesity; tachypneic Respiratory: end expiratory whhezing Cardiovascular: Regular rate/rhythm, Normal S1 S2, No murmurs Gastrointestinal: Normal bowel sounds, Soft and benign, Non-distended, No tenderness Musculoskeletal: No clubbing, No swelling, No tenderness Neurological: Sensation intact, Cranial nerves 3-12 intact Assessment & Plan - Problems (Diagnosis) (1) Acute respiratory failure due to severe acute respiratory syndrome coronavirus 2 (SARS-CoV-2) infection Current Visit: Yes Status: Acute (2) Diabetes Onset Date: 03/14/17 Current Visit: No Status: Chronic Qualifiers: Diabetes mellitus type: type 2 Diabetes mellitus 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 Continue with IV steroids 2. Continue with antiviral therapy; 5/5; completed 3. Continue with BiPAP support; currently maxed FiO2 at 100% 4. Pulmonary consultation appreciated 5. Continue with supportive care 6. Monitor LFTs 7. Monitor inflammatory markers 8. GI and DVT prophylaxis Discharge Plan: Home Plan to discharge in: Greater than 2 days - Advance Directives Does patient have a Living Will: No Does patient have a Durable POA for Healthcare: No - Code Status/Comfort Care Code Status Assessed: Yes Code Status: Full Code Critical Care: Yes Time Spent Managing PTS Care (In Minutes): 35
--- NOTE | 2020-07-14 12:02 | P.PN ---
Date of Service: 07/13/20 Subjective Subjective: Discussed code status; wants full code; still tachypneic and hypoxic; on bipap Review of Systems 10-point ROS is otherwise unremarkable Physical Examination - Vital Signs reviewed - Physical Exam General: Alert, In no apparent distress, Oriented x3; morbid obesity; tachypneic Respiratory: end expiratory whhezing Cardiovascular: Regular rate/rhythm, Normal S1 S2, No murmurs Gastrointestinal: Normal bowel sounds, Soft and benign, Non-distended, No tenderness Musculoskeletal: No clubbing, No swelling, No tenderness Neurological: Sensation intact, Cranial nerves 3-12 intact Assessment & Plan - Problems (Diagnosis) (1) Acute respiratory failure due to severe acute respiratory syndrome coronavirus 2 (SARS-CoV-2) infection Current Visit: Yes Status: Acute (2) Diabetes Onset Date: 03/14/17 Current Visit: No Status: Chronic Qualifiers: Diabetes mellitus type: type 2 Diabetes mellitus electro tech insulin use: with jail use Diabetes mellitus complication status: without complication Qualified Code(s): E11.9 - Type 2 diabetes mellitus without complications; Z79.4 - assisted (current) use of insulin (3) GERD (gastroesophageal reflux disease) Onset Date: 01/30/15 Current Visit: No Status: Chronic (4) Morbid obesity Onset Date: 03/14/17 Current Visit: No Status: Chronic - Plan 1. Continue with IV steroids 2. Continue with antiviral therapy; completed 3. Continue with BiPAP support; currently maxed FiO2 at 100% 4. Pulmonary consultation appreciated 5. Continue with supportive care 6. Monitoring LFTs 7. Monitor inflammatory markers 8. GI and DVT prophylaxis Discharge Plan: Home Plan to discharge in: Greater than 2 days - Advance Directives Does patient have a Living Will: No Does patient have a Durable POA for Healthcare: No - Code Status/Comfort Care Code Status Assessed: Yes Code Status: Full Code Critical Care: Yes Time Spent Managing PTS Care (In Minutes): 35
--- NOTE | 2020-07-14 12:58 | P.PN ---
Subjective Date of Service: 07/14/20 Primary Care Provider: Bea Chief Complaint: COVID pneumonia with hypoxia No change not doing well still requiring maximal support Re percent FiO2/patient niece to being restrained pulling on her mask Review of Systems is unable to be obtained Physical Examination - Vital Signs Temperature: 96.9 F Blood Pressure: 143/90 Pulse: 108 Respirations: 20 Pulse Ox (%): 86 - Studies Medications List Reviewed: Yes Assessment & Plan - Problems (Diagnosis) (1) Acute respiratory failure due to severe acute respiratory syndrome coronavirus 2 (SARS-CoV-2) infection Current Visit: Yes Status: Acute Plan: Respiratory failure continue with maximum multi vitamin supplementation in addition to 1 dose of ivermectin dose of Lasix prognosis very poor labs ordered increase insulin dose
[2020-07-14] MEDS: LORazepam 2 MG/ML VIAL IV PRN (14:00)
[2020-07-14] MEDS ORDERED: FUROSEMIDE 40 MG/4 ML VIAL IV ONE (19:00)
[2020-07-14] MEDS ORDERED: METHYLPREDNISOLONE 125 MG INJ IV ONE (19:00)
[2020-07-14] MEDS: MELATONIN 5 MG TABLET PO SCH (22:36)
[2020-07-14] MEDS: ENSURE HIGH PROTEIN 237 ML CAN PO SCH (22:38)
[2020-07-14] MEDS: METHYLPREDNISOLONE 125 MG INJ IV SCH (22:43)
[2020-07-14] MEDS: ESCITALOPRAM 20 MG TAB PO SCH (22:44)
[2020-07-15] MEDS: LORazepam 2 MG/ML VIAL IV PRN ×2 (00:24→16:07)
[2020-07-15] MEDS: THIAMINE 200 MG/2 ML INJ IVP SCH ×2 (00:25→08:32)
[2020-07-15 05:42] LABS: Absolute Lymphocytes (CBC) 0.4 K/uL (0.7-4.9); Basophils % 0.3 % (0-1.3); Hematocrit 48.3 % (36.0-45.0); Lymphocytes % 2.6 % (15.3-44.8); MPV 11.6 fL (7.6-11.3); RBC Red Blood Cell Count 5.81 M/uL (3.86-4.86)
[2020-07-15 06:03] LABS: Albumin 2.2 g/dL (3.4-5.0); Bilirubin Total 0.6 mg/dL (0.2-1.0); C-Reactive Protein 64.8 mg/L (<3.00); Magnesium 2.7 mg/dL (1.8-2.4); Phosphorus 5.8 mg/dL (2.5-4.9); Potassium 3.6 mmol/L (3.5-5.1); Protein, Total 6.8 g/dL (6.4-8.2)
[2020-07-15] MEDS ORDERED: HALOPERIDOL LACT 5 MG/ML INJ IV PRN (07:53)
[2020-07-15] MEDS ORDERED: LORazepam 2 MG/ML VIAL IV PRN (07:53)
[2020-07-15] MEDS: METFORMIN HCL 500 MG TAB PO SCH (08:00)
[2020-07-15] MEDS: INSULIN GLARGINE 100 UNITS/ML SQ SCH ×2 (08:30→21:26)
[2020-07-15] MEDS: INSULIN -REGULAR HUMAN 50 UNIT/0.5 ML ML SQ SCH ×4 (08:30→23:45)
[2020-07-15] MEDS: FUROSEMIDE 20 MG/ 2ML VIAL IV SCH ×2 (08:32→21:26)
[2020-07-15] MEDS: METHYLPREDNISOLONE 125 MG INJ IV SCH ×2 (08:32→21:28)
[2020-07-15] MEDS: D5W 1,000 ML IV SCH ×3 (08:39→21:48)
[2020-07-15] MEDS ORDERED: KCL 20 MEQ/100 mL IVPB 20 MEQ/100 ML BAG IV SCH (09:00)
[2020-07-15] MEDS: ENSURE HIGH PROTEIN 237 ML CAN PO SCH (09:00)
[2020-07-15] MEDS: SITAGLIPTIN PHOS 100 MG TAB PO SCH (09:00)
[2020-07-15] MEDS: FAMOTIDINE 20 MG TAB PO SCH (09:00)
[2020-07-15] MEDS ORDERED: ASPIRIN EC 325 MG TABLET PO SCH (09:00)
[2020-07-15] MEDS: METOPROLOL XL 25 MG TAB PO SCH (09:00)
[2020-07-15] MEDS ORDERED: POTASSIUM 25 MEQ EFFERV TAB PO ONE ×2 (09:00→14:00)
[2020-07-15 09:20] LABS: Blood Morphology Comment NOT SEEN (NOT SEEN); Platelet Estimate ADEQ; White Blood Cell Scan OK (OK)
[2020-07-15] MEDS ORDERED: NA CHLORIDE 0.9% 1,000 ML ONE (10:59)
[2020-07-15] MEDS ORDERED: RSI MEDICATION KIT IV ONE (10:59)
[2020-07-15] MEDS ORDERED: propofoL 1,000 MG/100 ML VIAL IV ONE (11:08)
[2020-07-15] MEDS ORDERED: SUCCINYLCHOLINE 20 MG/ML (10 ML) IV ONE (11:09)
[2020-07-15] MEDS ORDERED: CISATRACURIUM BESYLATE 40 MG in NA CHLORIDE 0.9% 80 ML IV PRN (11:14)
[2020-07-15] MEDS ORDERED: NOREPINEPHRINE 4 MG in D5W 250 ML IV PRN ×2 (11:36→11:37)
[2020-07-15] MEDS ORDERED: FENTANYL CITR 100 MCG/2 ML IV PRN (11:39)
--- NOTE | 2020-07-15 12:24 | RAD REPORT ---
EXAM DESCRIPTION: RAD - Chest Single View - 07/15/2020 11:48 am CLINICAL HISTORY: ETT placement Chest pain. COMPARISON: Chest Single View dated 07/10/2020; Chest Single View dated 07/08/2020; Chest Single View d ated 07/05/2020; Chest Pa And Lat (2 Views) dated 03/02/2020 FINDINGS: Portable technique limits examination quality. Tip of the ET tube is above the mily. Enteric tube descends into the upper abdomen. Extensive bilat eral pulmonary opacity appears mildly improved since prior study. The heart is mildly prominent. Mild pneumomediastinum is likely present. Mild subcutaneous emphysema base of the neck on the left also s een.
[2020-07-15] MEDS: APIXABAN 5 MG TABLET PO SCH ×2 (13:50→21:25)
[2020-07-15] MEDS: ASCORBIC ACID 500 MG TABLET PO SCH ×3 (13:50→21:29)
[2020-07-15] MEDS: ZINC SULFATE 220 MG CAP PO SCH (13:50)
[2020-07-15] MEDS: VITAMIN D 1000 UNIT TAB PO SCH (13:51)
[2020-07-15] MEDS ORDERED: GLUCAGON 1 MG/VIAL IM PRN (14:06)
[2020-07-15] MEDS ORDERED: D50W 25 GM/50 ML SYRINGE IV PRN (14:06)
[2020-07-15] MEDS: propofoL 1,000 MG/100 ML VIAL IV PRN ×3 (14:20→23:51)
[2020-07-15] MEDS: FENTANYL CITR 100 MCG/2 ML IV PRN (14:45)
[2020-07-15] MEDS: MIDAZOLAM HCL 2 MG/2 ML INJ IV PRN (16:10)
[2020-07-15] MEDS: HYDROMORPHONE HCL 1 MG/ML INJ IV PRN ×2 (17:00→23:51)
[2020-07-15] MEDS ORDERED: METOPROLOL TAR 25 MG TAB ONE (18:25)
[2020-07-15 19:08] LABS: Arterial Blood Carboxyhemoglob 0.8 % (0-1.5); Blood Gas Oxyhemoglobin 88.6 % (94-97); Blood O2 Saturation 90.1 % (92-98.5)
[2020-07-15] MEDS: MELATONIN 5 MG TABLET PO SCH (21:27)
[2020-07-15] MEDS: ESCITALOPRAM 20 MG TAB PO SCH (21:27)
[2020-07-15] MEDS: FAMOTIDINE 20 MG/2 ML VIAL IV SCH (21:28)
[2020-07-15] MEDS: THIAMINE HCL 100 MG TABLET PO SCH (21:29)
[2020-07-15] MEDS: CISATRACURIUM BESYLATE 80 MG in NA CHLORIDE 0.9% 160 ML IV PRN (21:45)
[2020-07-15] MEDS ORDERED: METOPROLOL TARTRATE 5 MG/5 ML INJ IV STA (22:21)
[2020-07-16] MEDS: propofoL 1,000 MG/100 ML VIAL IV PRN ×4 (05:36→21:16)
[2020-07-16] MEDS: INSULIN -REGULAR HUMAN 50 UNIT/0.5 ML ML SQ SCH ×3 (05:58→17:50)
[2020-07-16 06:04] LABS: Blood Gas Oxyhemoglobin 92.7 % (94-97); Blood O2 Saturation 94.4 % (92-98.5)
[2020-07-16 06:04] LABS: Potassium 4.5 mmol/L (3.5-5.1)
[2020-07-16] MEDS: CISATRACURIUM BESYLATE 80 MG in NA CHLORIDE 0.9% 160 ML IV PRN ×3 (06:09→23:05)
[2020-07-16 06:19] LABS: Absolute Lymphocytes (CBC) 0.5 K/uL (0.7-4.9); Basophils % 1.1 % (0-1.3); Hematocrit 46.1 % (36.0-45.0); Lymphocytes % 1.9 % (15.3-44.8); MPV 11.9 fL (7.6-11.3)
[2020-07-16 07:07] LABS: Blood Morphology Comment NOT SEEN (NOT SEEN); Platelet Estimate ADEQ
--- NOTE | 2020-07-16 07:56 | RAD REPORT ---
EXAM DESCRIPTION: RAD - Chest Single View - 07/16/2020 6:22 am CLINICAL HISTORY: intubated covid COMPARISON: Portable July 15 TECHNIQUE: AP portable chest image was obtained 07/16/2020 6:22 am . FINDINGS: Endotracheal tube and NG tube are unchanged. Subcutaneous emphysema is not significantly d ifferent. Lung volumes are reduced compared to the prior study. This accentuates the lung parenchymal pattern. No substantial change to the lung parenchyma when adjusting for the lower lung volumes. Heart and vasculature are normal. No measurable pleural effusion and no pneumothorax. No acute bony abnormality seen. No acute aortic findings suspected. IMPRESSION: Stable chest as detailed.
[2020-07-16] MEDS: INSULIN GLARGINE 100 UNITS/ML SQ SCH ×2 (09:00→20:14)
[2020-07-16] MEDS: VITAMIN D 1000 UNIT TAB PO SCH (09:06)
[2020-07-16] MEDS: THIAMINE HCL 100 MG TABLET PO SCH ×2 (09:06→20:15)
[2020-07-16] MEDS: ASCORBIC ACID 500 MG TABLET PO SCH ×3 (09:07→20:16)
[2020-07-16] MEDS: APIXABAN 5 MG TABLET PO SCH ×2 (09:07→20:13)
[2020-07-16] MEDS: METHYLPREDNISOLONE 125 MG INJ IV SCH ×2 (09:07→20:15)
[2020-07-16] MEDS: FAMOTIDINE 20 MG/2 ML VIAL IV SCH (09:07)
[2020-07-16] MEDS: ZINC SULFATE 220 MG CAP PO SCH (09:07)
[2020-07-16] MEDS: FUROSEMIDE 20 MG/ 2ML VIAL IV SCH (09:09)
[2020-07-16] MEDS: D5W 1,000 ML IV SCH (09:12)
--- NOTE | 2020-07-16 10:38 | P.PN ---
Subjective Date of Service: 07/16/20 Primary Care Provider: Bea Chief Complaint: Respiratory failure Patient's condition deteriorated yesterday had to be intubated and a members wanted everything done she is currently hypoxic on a ventilator with subcutaneous emphysema Review of Systems is unable to be obtained Physical Examination - Vital Signs Temperature: 96.6 F Blood Pressure: 117/82 Pulse: 100 Respirations: 30 Pulse Ox (%): 93 - Studies Medications List Reviewed: Yes Assessment & Plan - Problems (Diagnosis) (1) Acute respiratory failure due to severe acute respiratory syndrome coronavirus 2 (SARS-CoV-2) infection Current Visit: Yes Status: Acute Plan: Respiratory failure continue with present therapy oxygenation so far satisfactory titrate O2 down to sat of 90% reduce peep due to subcutaneous emphysema Dc diuretic start tube feeds white count elevated prophylactic Rocephin D-dimer is also elevated patient is on Eliquis Dc IV fluids
[2020-07-16] MEDS ORDERED: GLUCERNA 1.5 CAL 1,000 ML BOT RTH SCH (12:00)
[2020-07-16] MEDS: HYDROMORPHONE HCL 1 MG/ML INJ IV PRN ×2 (12:15→16:47)
[2020-07-16] MEDS: FENTANYL CITR 100 MCG/2 ML IV PRN ×2 (13:24→21:26)
--- NOTE | 2020-07-16 14:08 | P.PN ---
Subjective Date of Service: 07/15/20 Patient was not doing well on BiPAP in the ICU. Spoke with family and they were agreeable for intubation. Patient had wanted everything done according to the family. However, she was fairly indecisive at times as well. At this time will proceed with intubation. We will probably need to continue her on paralytics as she is severely hypoxic. Her prognosis is poor. Review of Systems is unable to be obtained Physical Examination - Vital Signs Temperature: 96.6 F Blood Pressure: 154/98 Pulse: 111 Respirations: 30 Pulse Ox (%): 97 - Physical Exam General: Alert, In no apparent distress, Severe distress HEENT: Atraumatic, PERRLA, Other (Intubated and sedated), EOMI Neck: Supple, JVD not distended Respiratory: Diminished Cardiovascular: Regular rate/rhythm, Normal S1 S2, No murmurs Gastrointestinal: Normal bowel sounds, Soft and benign, Non-distended, No tenderness Musculoskeletal: No clubbing, Swelling Neurological: Sensation intact, Cranial nerves 3-12 intact - Studies Medications List Reviewed: Yes Assessment & Plan - Problems (Diagnosis) (1) Acute respiratory failure due to severe acute respiratory syndrome coronavirus 2 (SARS-CoV-2) infection Current Visit: Yes Status: Acute (2) Diabetes Onset Date: 03/14/17 Current Visit: No Status: Chronic Qualifiers: Diabetes mellitus type: type 2 Diabetes mellitus [facility] insulin use: with [facility] use Diabetes mellitus complication status: without complication Qualified Code(s): E11.9 - Type 2 diabetes mellitus without complications; Z79.4 - intermediate (current) use of insulin (3) GERD (gastroesophageal reflux disease) Onset Date: 01/30/15 Current Visit: No Status: Chronic (4) Morbid obesity Onset Date: 03/14/17 Current Visit: No Status: Chronic - Plan Continue with plan of care as mentioned below 1. Continue with IV steroids 2. Patient has finished Remdesivir over 5 days 3. Mechanical ventilation; pulmonary consultation 4. Long-term prognosis is poor. Will continue with updating family 5. Continue with paralytics and sedatives 6. Start tube feeds in the morning 7. Monitor cardiac status closely 8. GI and DVT prophylaxis Discharge Plan: Home Plan to discharge in: Greater than 2 days - Advance Directives Does patient have a Living Will: No Does patient have a Durable POA for Healthcare: No - Code Status/Comfort Care Code Status: Full Code Critical Care: Yes Time Spent Managing PTS Care (In Minutes): 60
--- NOTE | 2020-07-16 14:17 | P.PN ---
Subjective Date of Service: 07/14/20 Patient remains severely hypoxic on BiPAP support. Patient is satting 88-90%. Patient is doing poorly and we have spoken with family to update them. If patient does not improve then plan is to transfer the ICU for intubation. Review of Systems 10-point ROS is otherwise unremarkable Physical Examination - Vital Signs Temperature: 96.6 F Blood Pressure: 154/98 Pulse: 111 Respirations: 30 Pulse Ox (%): 97 - Physical Exam General: Alert, In no apparent distress, Oriented x3, Moderate distress Respiratory: Diminished, Rhonchi/gurgles Cardiovascular: Regular rate/rhythm, Normal S1 S2, No murmurs Gastrointestinal: Normal bowel sounds, Soft and benign, Non-distended, No tenderness Musculoskeletal: No clubbing, No swelling, No tenderness Neurological: Sensation intact, Cranial nerves 3-12 intact - Studies Medications List Reviewed: Yes Assessment & Plan - Problems (Diagnosis) (1) Acute respiratory failure due to severe acute respiratory syndrome coronavirus 2 (SARS-CoV-2) infection Current Visit: Yes Status: Acute (2) Diabetes Onset Date: 03/14/17 Current Visit: No Status: Chronic Qualifiers: Diabetes mellitus type: type 2 Diabetes mellitus [facility] use: with [facility] use Diabetes mellitus complication status: without complication Qualified Code(s): E11.9 - Type 2 diabetes mellitus without complications; Z79.4 - [facility] (current) use of insulin (3) GERD (gastroesophageal reflux disease) Onset Date: 01/30/15 Current Visit: No Status: Chronic (4) Morbid obesity Onset Date: 03/14/17 Current Visit: No Status: Chronic - Plan Continue with plan of care as mentioned below 1. Continue with IV steroids 2. Patient has finished Remdesivir over the last 5 days 3. Patient remains on max BiPAP support. If patient is not improving then we will transfer to ICU for intubation. 4. Spoke with family and patient at this time is a full code.; patient did talk to me with cultural link, and she had considered supportive care to be home with her family. But I went back with nurse (who assisted with translation) and she wanted everything performed. 5. Monitor cardiac status closely 6. GI and DVT prophylaxis Discharge Plan: LTAC Plan to discharge in: Greater than 2 days - Advance Directives Does patient have a Living Will: No Does patient have a Durable POA for Healthcare: No - Code Status/Comfort Care Code Status: Full Code Critical Care: Yes Time Spent Managing PTS Care (In Minutes): 35
--- NOTE | 2020-07-16 14:31 | P.PN ---
Subjective Date of Service: 07/16/20 At this time, patient has developed pneumomediastinum with mild subcutaneous emphysema. Patient remains on max oxygen support. Patient PEEP pressures had to be reduced. Patient's arterial oxygen is stable. Will update the family and will discus with them regarding DNR status. Review of Systems is unable to be obtained Physical Examination - Vital Signs Temperature: 96.6 F Blood Pressure: 154/98 Pulse: 111 Respirations: 30 Pulse Ox (%): 97 - Physical Exam General: Other (Patient is intubated and sedated and paralyzed) HEENT: Other (ET tube and OG tube in place) Respiratory: Diminished, Rhonchi/gurgles Cardiovascular: Regular rate/rhythm, Normal S1 S2, No murmurs Gastrointestinal: Normal bowel sounds, Soft and benign, Non-distended Musculoskeletal: No clubbing, Swelling Integumentary: Tenderness/swelling Neurological: Other (Patient is paralyzed) - Studies Medications List Reviewed: Yes Assessment & Plan - Problems (Diagnosis) (1) Acute respiratory failure due to severe acute respiratory syndrome coronavirus 2 (SARS-CoV-2) infection Current Visit: Yes Status: Acute (2) Diabetes Onset Date: 03/14/17 Current Visit: No Status: Chronic Qualifiers: Diabetes mellitus type: type 2 Diabetes mellitus 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 Continue with IV steroids 2. Patient has finished Remdesivir over the last 5 days 3. Patient remains on mechanical ventilation. Patient with a subcutaneous emphysema/pneumomediastinum 4. Currently, patient is a full code. Will discuss with family regarding DNR status 5. Monitor cardiac status closely 6. GI and DVT prophylaxis Discharge Plan: Home Plan to discharge in: Greater than 2 days - Advance Directives Does patient have a Living Will: No Does patient have a Durable POA for Healthcare: No - Code Status/Comfort Care Code Status: Full Code Critical Care: Yes Time Spent Managing PTS Care (In Minutes): 32
--- NOTE | 2020-07-16 14:32 | P.PN ---
Subjective Date of Service: 07/14/20 Patient remains severely hypoxic on BiPAP support. Patient is satting 88-90%. Patient is doing poorly and we have spoken with family to update them. If patient does not improve then plan is to transfer the ICU for intubation. Physical Examination - Vital Signs Temperature: 96.6 F Blood Pressure: 154/98 Pulse: 111 Respirations: 30 Pulse Ox (%): 97 - Studies Medications List Reviewed: Yes Assessment & Plan - Problems (Diagnosis) (1) Acute respiratory failure due to severe acute respiratory syndrome coronavirus 2 (SARS-CoV-2) infection Current Visit: Yes Status: Acute (2) Diabetes Onset Date: 03/14/17 Current Visit: No Status: Chronic Qualifiers: Diabetes mellitus type: type 2 Diabetes mellitus intermediate manager insulin use: with intermediate manager use Diabetes mellitus complication status: without complication Qualified Code(s): E11.9 - Type 2 diabetes mellitus without complications; Z79.4 - [facility] of [facility] (3) GERD (gastroesophageal reflux disease) Onset Date: 01/30/15 Current Visit: No Status: Chronic (4) Morbid obesity Onset Date: 03/14/17 Current Visit: No Status: Chronic - Plan Continue with plan of care as mentioned below 1. Continue with IV steroids 2. Patient has finished Remdesivir over the last 5 days 3. Patient remains on max BiPAP support. If patient is not improving then we will transfer to ICU for intubation. 4. Spoke with family and patient at this time is a full code.; patient did talk to me with cultural link, and she had considered supportive care to be home with her family. But I went back with nurse (who assisted with translation) and she wanted everything performed. 5. Monitor cardiac status closely 6. GI and DVT prophylaxis - Advance Directives Does patient have a Living Will: No Does patient have a Durable POA for Healthcare: No - Code Status/Comfort Care Code Status: Full Code
--- NOTE | 2020-07-16 15:01 | RAD REPORT ---
EXAM DESCRIPTION: RAD - Chest Single View - 07/16/2020 2:50 pm CLINICAL HISTORY: PICC LINE PLACEMENT COMPARISON: Portable July 16 TECHNIQUE: AP portable chest image was obtained 07/16/2020 2:50 pm . FINDINGS: Left sided PICC line has been placed. Tip is in the proximal SVC directed towards the side wall. Line should still be functional. Trach tube and NG tube are in good position. NG tube tip extends below the diaphragm, off the field o f view. Subcutaneous emphysema changes not substantially different. Interstitial and alveolar opacification pattern not clearly different from earlier in the day. Heart size is normal and stable. No measurable pleural effusion and no pneumothorax. Delete select IMPRESSION: Left-sided PICC line is in place. Tip is in the proximal SVC. Tip is directed towards th e side wall but should still be functional in this position. No other significant change from earlier in the day.
[2020-07-16] MEDS: MIDAZOLAM HCL 2 MG/2 ML INJ IV PRN (15:57)
[2020-07-16] MEDS ORDERED: SPECIAL ORDER MED 1 EA UNK PO ONE (16:00)
--- NOTE | 2020-07-16 16:33 | P.PN ---
Date of Service: 07/16/20
[2020-07-16] MEDS: METOPROLOL TAR 25 MG TAB PO SCH (16:47)
[2020-07-16] MEDS: ESCITALOPRAM 20 MG TAB PO SCH (20:14)
[2020-07-16] MEDS: MELATONIN 5 MG TABLET PO SCH (20:16)
[2020-07-16] MEDS ORDERED: FAMOTIDINE 20 MG TAB PO SCH (21:00)
[2020-07-16] MEDS: LORazepam 2 MG/ML VIAL IV PRN (21:26)
[2020-07-16 22:11] VITALS: O2SAT 90
[2020-07-16] MEDS ORDERED: METOPROLOL TARTRATE 5 MG/5 ML INJ IV STA (22:26)
[2020-07-17] MEDS: INSULIN -REGULAR HUMAN 50 UNIT/0.5 ML ML SQ SCH ×2 (00:30→06:48)
[2020-07-17] MEDS ORDERED: FUROSEMIDE 20 MG/ 2ML VIAL IV ONE (01:12)
[2020-07-17] MEDS ORDERED: FUROSEMIDE 20 MG/ 2ML VIAL ONE (01:43)
[2020-07-17 01:56] LABS: Absolute Lymphocytes (CBC) 0.3 K/uL (0.7-4.9); Basophils % 0.4 % (0-1.3); Hematocrit 50.9 % (36.0-45.0); Lymphocytes % 1.2 % (15.3-44.8); MPV 12.3 fL (7.6-11.3); RBC Red Blood Cell Count 5.93 M/uL (3.86-4.86)
[2020-07-17 02:13] LABS: Arterial Blood Carboxyhemoglob 1.1 % (0-1.5); Blood Gas Oxyhemoglobin 85.6 % (94-97); Blood O2 Saturation 87.4 % (92-98.5)
[2020-07-17] MEDS: propofoL 1,000 MG/100 ML VIAL IV PRN (02:23)
[2020-07-17 02:48] LABS: Albumin 2.1 g/dL (3.4-5.0); Bilirubin Total 0.5 mg/dL (0.2-1.0); C-Reactive Protein 18.2 mg/L (<3.00); Protein, Total 6.4 g/dL (6.4-8.2)
[2020-07-17 02:52] LABS: Potassium 5.7 mmol/L (3.5-5.1)
[2020-07-17] MEDS ORDERED: CALCIUM GLUC 10% INJ 4.65 MEQ in NA CHLORIDE 0.9% 100 ML IV ONE (03:24)
[2020-07-17] MEDS ORDERED: SOD POLYSTYREN SUL 15 GM/60 ML UCUP PO ONE (03:24)
[2020-07-17] MEDS ORDERED: SODIUM BICARB 50 MEQ/50ML VIAL ONE (03:50)
[2020-07-17] MEDS ORDERED: CALCIUM GLUCONATE 1 GM IVPB 1 GM/50 ML BAG IV ONE (03:53)
[2020-07-17 04:43] LABS: Magnesium 3.1 mg/dL (1.8-2.4)
[2020-07-17 05:07] LABS: Absolute Lymphocytes (CBC) 0.2 K/uL (0.7-4.9); Basophils % 0.3 % (0-1.3); Hematocrit 47.7 % (36.0-45.0); MPV 11.8 fL (7.6-11.3); RBC Red Blood Cell Count 5.62 M/uL (3.86-4.86)
[2020-07-17 05:25] VITALS: BMI 43.6
[2020-07-17 05:59] LABS: C-Reactive Protein 15.2 mg/L (<3.00); Ferritin 3183.9 ng/mL (8-388)
[2020-07-17] MEDS: METOPROLOL TAR 25 MG TAB PO SCH (06:00)
[2020-07-17 06:01] LABS: Potassium 5.6 mmol/L (3.5-5.1)
[2020-07-17 06:34] VITALS: BP 76/64; TEMP 97.4
[2020-07-17] MEDS ORDERED: NOREPINEPHRINE 4mg/D5W 250mL 4 MG/250 ML BAG IV ONE (06:34)
--- NOTE | 2020-07-17 06:53 | P.PN ---
Subjective Date of Service: 07/17/20 Primary Care Provider: Bea Chief Complaint: Respiratory failure Subjective: Other (Patient worsening. Patient becoming hypotensive with tachycardia.) Physical Examination - Vital Signs Temperature: 97.4 F Blood Pressure: 76/64 Pulse: 146 Respirations: 30 Pulse Ox (%): 87 - Physical Exam General: Other (Patient remains sedated and on the ventilator.) Neck: Other (Increased subcu emphysema noted to the neck and chest area.) Respiratory: Other (Patient currently on ventilator.) Cardiovascular: Abnormal pulses (Sinus tachycardia) Integumentary: Other (Mottling to the lower extremities.) - Studies Medications List Reviewed: Yes Assessment & Plan Discharge Plan: Other (Inpatient hospice) - Code Status/Comfort Care Code Status Assessed: Yes Code Status: Do Not Attempt Resuscitat Physician Review Additional Text: Assessment Acute respiratory failure with hypoxia secondary to Bilateral COVID pneumonia Diabetes mellitus type 2 Hypertension Depression with anxiety GERD Chronic diabetic neuropathy Obesity, BMI 39 Plan Acute respiratory failure with hypoxia secondary to Bilateral COVID pneumonia: Patient's condition has worsened. Patient now on the ventilator. Patient sedated with paralytic. Patient is become hypotensive and tachycardic. Ferritin significantly increased. Patient with acute renal failure stage 5. L of teas also may indicate liver failure. Advanced care directives address in detail with the family. Family understands patient has a poor prognosis due to her current conditions. Patient has made the patient DNR. Will have family members visit with patient. If her condition continues to decline will need to consider withdrawal of care and possibly inpatient hospice. Will further discuss this with the family. Will discuss further with pulmonology as well. Will change status at this time. Diabetes mellitus type 2: A.c. HS Accu-Cheks, sliding scale insulin therapy. Continue to adjust Lantus for better control. Continue aggressive control of diabetes. Elevated liver function suspect liver failure: Continue as above Hypotension likely related to above with possible septic shock: Patient now on DNR. Continue as above. Hypertension: Medications have been discontinued Depression with anxiety: Continue Celexa. Ativan added for anxiety. GERD: Mild nausea noted. Will provide medication. Continued Pepcid. Chronic diabetic neuropathy: Will provide medication for pain Obesity, BMI 39: Will address lifestyle modification Time Spent Managing Pts Care (In Minutes): 55
[2020-07-17] MEDS: CISATRACURIUM BESYLATE 80 MG in NA CHLORIDE 0.9% 160 ML IV PRN (08:49)
[2020-07-17] MEDS ORDERED: CEFTRIAXONE/SWI 1gm 1 GM/10 ML SYR IV SCH (09:00)
[2020-07-17] MEDS ORDERED: ETOMIDATE 20 MG/10 ML VIAL IV ONE (10:54)
[2020-07-17] MEDS ORDERED: SUCCINYLCHOLINE 20 MG/ML (10 ML) IV ONE (12:12)
--- NOTE | 2020-07-17 12:42 | RAD REPORT ---
EXAM DESCRIPTION: RAD - Chest Single View - 07/17/2020 1:57 am CLINICAL HISTORY: Endotracheal Tube, tachycardia COMPARISON: Chest 1 view 07/16/2020 CT chest 07/05/2020 TECHNIQUE: Chest 1 view AP portable FINDINGS: Evaluation more difficult due to patient body habitus and rightward rotated position. Heart size mildly enlarged. [id number] dense bilateral lung opacities. Small bilateral pleural effusions cannot be ruled out. Small bilateral pneumothoraces cannot be ruled out. Marked bilateral subcutaneous emphysema again noted. ETT, left arm PICC, and NGT in place. IMPRESSION: 1. [id number] dense bilateral lung opacities. Small bilateral pleural effusions and small biapical pneumothoraces cannot be ruled out. 2. Marked bilateral subcutaneous emphysema again noted. 3. Medical support devices remain in place. Electronically signed by: Tristin Marquez MD 07/17/2020 6:27 AM CERTIFIED RESIDENTIAL MEDICATION AIDE Due to temporary technical issues with the PACS/Fluency reporting system, reports are being signed by the in house radiologist without review as a courtesy to ensure prompt reporting. The interpreting r adiologist is fully responsible for the content of the report.
--- NOTE | 2020-07-17 17:44 | P.DS ---
Admission Date: 07/05/20 Discharge Date: 07/17/20 Primary Care Provider: Bea Disposition: Discharge Condition: Reason for Admission: Respiratory failure Consultations: Pulmonary-Dr. Mckeon Procedures: Medical problem list: Acute respiratory failure with hypoxia complicated with acute respiratory syndrome secondary to Bilateral COVID pneumonia worsened with subcutaneous emphysema/pneumomediastinum Acute renal failure with hyperkalemia related to above Elevated liver function suspect acute liver failure related to above Hypotension secondary to cardiopulmonary failure Diabetes mellitus type 2 Hypertension Depression with anxiety GERD Chronic diabetic neuropathy Obesity, BMI 39 Brief History of Present Illness: 80-year-old female presented to the emergency room with increasing shortness of breath. Patient had tested positive for COVID 19 on 06/28/2020. Patient continued to have desaturations and increasing shortness of breath. Patient admitted for acute respiratory failure. Hospital Course: Patient presented with increased shortness of breath. Patient had been diagnosed with COVID 19 on 06/28/2020. Patient was admitted for acute respiratory failure with hypoxia due to worsening symptoms. Patient was seen and evaluated by pulmonology. During the course of her stay her condition continued to decline. Patient did receive IV steroid and remdesivir without improvement. As her condition declined patient developed acute respiratory distress syndrome. Patient required BiPAP. This led to subcutaneous emphysema and pneumomediastinum. The patient ultimately was intubated. While intubated patient started to have acute renal failure. Patient also had elevation in liver function suspected for acute liver failure. As a condition continued to decline patient became hypotensive and was placed on Levophed related to cardiopulmonary failure. At that point advanced directives were readdressed with family. After long discussion, family made the patient DNR. After family visited with the patient. Patient while on the ventilator. Vital Signs/Physical Exam: Temp Pulse Resp BP Pulse Ox 97.4 F 146 H 30 H 76/64 L 87 L 07/17/20 06:53 07/17/20 06:53 07/17/20 06:53 07/17/20 06:53 07/17/20 06:53 General: Other (patient ) Laboratory Data at Discharge: WBC 24.4 K/uL (4.3-10.9) H* 07/17/20 05:00 Hgb 14.5 g/dL (12.0-15.0) 07/17/20 05:00 Hct 47.7 % (36.0-45.0) H 07/17/20 05:00 Plt Count 185 K/uL (152-406) 07/17/20 05:00 PT 11.9 SECONDS (9.5-12.5) 07/05/20 21:05 INR 1.01 07/05/20 21:05 Sodium 143 mmol/L (136-145) 07/17/20 05:00 Potassium 5.6 mmol/L (3.5-5.1) H* 07/17/20 05:00 BUN 88 mg/dL (7-18) H 07/17/20 05:00 Creatinine 2.80 mg/dL (0.55-1.3) H 07/17/20 05:00 Glucose 356 mg/dL (74-106) H 07/17/20 05:00 Phosphorus 5.8 mg/dL (2.5-4.9) H 07/15/20 05:17 Magnesium Cancelled 07/17/20 Unknown Total Bilirubin 0.5 mg/dL (0.2-1.0) 07/17/20 01:25 AST 114 U/L (15-37) H 07/17/20 01:25 ALT 83 U/L (12-78) H 07/17/20 01:25 Alkaline Phosphatase 85 U/L (45-117) 07/17/20 01:25 Home Medications: Gabapentin 300 mg PO TID 08/18/12 Escitalopram [Lexapro] 10 mg PO BEDTIME 01/28/15 Insulin Degludec [Tresiba] 45 units SQ DAILY 07/06/20 Liraglutide [Victoza 2-Krystian] 1.8 mg SQ DAILY 07/06/20 Losartan Potassium 100 mg PO DAILY 07/06/20 Metoprolol Succinate 25 mg PO DAILY 07/06/20 Omeprazole [Prilosec] 40 mg PO DAILY 07/06/20 Pioglitazone HCl [Actos] 30 mg PO DAILY 07/06/20 Tramadol HCl [Ultram] 50 mg PO BID PRN 07/06/20 Patient Discharge Instructions: Patient . May she rest in peace. Followup: Raleigh Vaughan DO [Primary Care Provider] - Time spent managing pt's care (in minutes): 55
== END 2020-07-17 10:55 | disposition expired | DRG 208 ==
LOC: ER 19:43 → ERHOLD 22:33 → 4TH 07-06 20:45 → 3RD-ICU 07-14 23:47
PROVIDERS: ADMIT Family Medicine; ATTEND Family Medicine
PROC: XW033E5 Introduction of Remdesivir Anti-infective into Peripheral Vein, Percutaneous Approach, New Technology Group 5 (ICD-10-PCS; 2020-07-08)
PROC: 5A1945Z Respiratory Ventilation, 24-96 Consecutive Hours (ICD-10-PCS; principal; 2020-07-15)
PROC: 0BH17EZ Insertion of Endotracheal Airway into Trachea, Via Natural or Artificial Opening (ICD-10-PCS; 2020-07-15)
PROC: 02HV33Z Insertion of Infusion Device into Superior Vena Cava, Percutaneous Approach (ICD-10-PCS; 2020-07-16)
DX: U07.1 COVID-19 (principal); J12.82 Pneumonia due to coronavirus disease 2019; J80 Acute respiratory distress syndrome; K72.00 Acute and subacute hepatic failure without coma; T79.7XXA Traumatic subcutaneous emphysema, initial encounter; N17.9 Acute kidney failure, unspecified; K21.9 Gastro-esophageal reflux disease without esophagitis; J43.8 Other emphysema; F41.8 Other specified anxiety disorders; E11.40 Type 2 diabetes mellitus with diabetic neuropathy, unspecified; E87.5 Hyperkalemia; I10 Essential (primary) hypertension; E66.01 Morbid (severe) obesity due to excess calories; R79.89 Other specified abnormal findings of blood chemistry; Z66 Do not resuscitate; Z79.82 Long term (current) use of aspirin; Z79.4 Long term (current) use of insulin; Z90.49 Acquired absence of other specified parts of digestive tract; Z79.899 Other long term (current) drug therapy; Z87.891 Personal history of nicotine dependence; Z68.39 Body mass index [BMI] 39.0-39.9, adult; Z23 Encounter for immunization
CPT/HCPCS: 0240U; 36415; 36569; 71045; 71275; 80048; 80053; 80076; 82248; 82728; 82805; 82947; 83036; 83605; 83615; 83735; 83880; 84100; 84145; 84484; 85025; 85379; 85610; 86140; 87040; 90471; 93005; 94002; 94003; 94010; 94660; 94760; 96365; 96367; 96375; 99285; J0330; J0456; J0610; J0696; J1100; J1170; J1650; J1815; J1940; J2250; J2405; J2550; J2704; J2920; J2930; J3010; J3411; J7030; J7050; J7060; Q2035; Q9967